=== PATIENT | female | born 1970 | race Caucasian/White ===

== ENCOUNTER 2024-11-16 09:21 | Observation (INO) ==
[2024-11-16 10:26] LABS: Appearance Urine Turbid (Clear); Bacteria Urine Automated 4+ (None Seen); Glucose Urine UA Negative (Negative); WBC Urine Automated >50 /hpf (0-5)
[2024-11-16 10:27] LABS: Hematocrit (blood only) 42.1 % (37.0-47.0); Hemoglobin 14.3 g/dl (12.0-16.0); Immature Granulocytes # (auto) 0.04 K/uL (0.01-0.20); Immature Granulocytes % (auto) 0.3 %; Mean Corpuscular Hemoglobin 31.4 pg (25.0-34.0); Mean Corpuscular Volume 92.3 fL (80.0-100.0); Platelet Count 320 K/uL (130-400); RDW Standard Deviation 43.6 fL (36.4-46.3); Red Blood Count 4.56 M/uL (4.20-5.40); White Blood Count 11.99 K/ul (4.8-10.8)
[2024-11-16 10:46] LABS: Alanine Aminotransferase 27.0 U/L (7-52); Albumin Globulin Ratio 1.5 (0.9-2); Alkaline Phosphatase 86.0 U/L (34-104); Anion Gap 6.0 (3-11); Bilirubin,Total 0.7 mg/dl (0.2-1.0); Blood Urea Nitrogen 18.0 mg/dl (6-23); Calcium 9.5 mg/dl (8.6-10.3); Carbon Dioxide 30.0 mmol/L (21-32); Chloride 102.0 mmol/L (98-107); Creatinine Clr Calc Pharmacy 85.7 ml/min; Globulin 2.9 gm/dl (2.5-4.0); Glucose 99.0 mg/dl (70-99(Fasting)); Potassium 3.6 mmol/L (3.5-5.1); Sodium 138.0 mmol/L (136-145); Total Protein 7.2 gm/dl (6.0-8.3)
--- NOTE | 2024-11-16 10:59 | Emergency Department Note ---
ED Provider Note History of Present Illness Chief Complaint: Urinary Symptoms Stated Complaint: URINARY Time Seen by Provider: 11/16/24 09:31 Source: patient Mode of arrival: ambulatory Limitations: no limitations Patient is a 54-year-old female who presents to the emergency department with complaints of lower abdominal discomfort, urinary retention, and feelings of bloating. Patient states that she has a significant urological history and has had cystoscopies and recently Botox injected into her bladder. Patient was seen by urology several days ago and was complaining of urinary retention at that point but believes it is got worse since then. Patient has been self catheterizing at home, typically at night but does not believe that she is emptying her bladder completely. Patient also notes general body aches and unwell feeling. Home Medications Medication Instructions Recorded Confirmed Type Medical Marijuana 1 dose PO DAILY 09/10/24 11/16/24 History Super Beets 1 dose PO QAM 09/10/24 11/16/24 History cholecalciferol (vitamin D3) 25 25 mcg PO DAILY 09/10/24 11/16/24 History mcg (1,000 unit) chewable tablet (Vitamin D3) coenzyme Q10 100 mg capsule (Co 100 mg PO QA 09/10/24 11/16/24 History Q-10) duloxetine 60 mg capsule,delayed 60 mg PO QA 09/10/24 11/16/24 History release ezetimibe 10 mg tablet 10 mg PO QAM 09/10/24 11/16/24 History guaifenesin 600 mg tablet, 600 mg PO QA 09/10/24 11/16/24 History extended release 12 hr hydrochlorothiazide 25 mg tablet 25 mg PO QAM 09/10/24 11/16/24 History magnesium glycinate 100 mg (as 100 mg PO 09/10/24 11/16/24 History glycinate) tablet potassium chloride 10 mEq 10 meq PO QAM 09/10/24 11/16/24 History tablet,extended release red yeast rice 600 mg tablet 600 mg PO HS 09/10/24 11/16/24 History trazodone 100 mg tablet 100 mg PO HS 09/10/24 11/16/24 History tamsulosin 0.4 mg capsule 0.4 mg PO HS #90 caps 11/11/24 11/16/24 Rx losartan 100 mg tablet 100 mg PO QAM 11/16/24 11/16/24 History propranolol 80 mg tablet 40 mg PO QAM 11/16/24 11/16/24 History semaglutide (weight loss) 2.4 2.4 mg subcut WK 11/16/24 11/16/24 History mg/0.75 mL subcutaneous pen injector (Wegovy) zinc gluconate 50 mg tablet 50 mg PO QAM 11/16/24 11/16/24 History Allergies Allergy/AdvReac Type Severity Reaction Status Date / Time kiwi Allergy Severe Anaphylaxis Unverified 11/16/24 12:01 morphine Allergy Intermediate felt like Verified 11/16/24 12:01 bugs crawling on skin, severe Sulfa (Sulfonamide AdvReac Intermediate Headache Verified 11/16/24 12:01 Antibiotics) Past Med/Surg History Problem List (Updated 11/16/24 @ 14:34 by Akash Kwok) Urinary tract infection (Acute) Acute urinary retention (Acute) Hernia Pelvic floor dysfunction (Chronic) Incontinence (Chronic) Medical History Chronic sinusitis History of anesthesia reaction BP went really high, needed a nitro patch at one point for it HLD (hyperlipidemia) HTN (hypertension) BP 118/78 at 01/2024 cardio appt History of kidney stones GERD (gastroesophageal reflux disease) Fibromyalgia History of anesthesia reaction did not move bowels for 10 days after last bladder sx, was hospitalized at [facility] for 4 days due to this, July 2020 Surgical History History of esophagogastroduodenoscopy (EGD) History of colonoscopy History of cholecystectomy "might" have had removed History of appendectomy Hx of vascular surgery to legs vein stripping [place] teeth extracted Hx of lithotripsy History of partial hysterectomy Hx of section x2 Hx of hernia repair Hx of sinus surgery History of bladder surgery x2, first one was done through abdomen Family History Brother Heart problem Social History Smoking Status: Never smoker Second Hand Exposure: No; Do You Dip or Chew Tobacco: No; Hx Alcohol Use: Yes Alcohol type: wine Hx Substance Use: Yes Substance Use Type Other:: med card. Preferred Language: [place] Communication Ability: Effective Visual Impairment: No Limitations Buffet Waiter/Waitress Required: No Beliefs That Will Affect Care: None Current Living Situation: Spouse Feels Safe at Home: Yes Assistive Devices: Glasses Physical Exam Vital Signs Vital Signs - 24 hr 11/16/24 09:22 11/16/24 09:27 11/16/24 11:13 Temperature 36.5 C Temperature Source Temporal Artery Scan Pulse Rate 90 84 Pulse Rate [Right Finger] 77 Respiratory Rate 16 18 Respiratory Effort / Characteristics Non-Labored Respiratory Depth Normal Respiratory Pattern Regular Blood Pressure 134/88 Blood Pressure [Right Arm] 130/90 Blood Pressure Mean 103 Blood Pressure Mean [Right Arm] 103 Pulse Oximetry 95 97 Oxygen Delivery Method Room Air Sepsis Recent Fever Within 48 Hours No Sepsis New/Unexplained Change in Mental Status N/A Sepsis Action Taken by Nursing No Action Required 11/16/24 11:22 Temperature Temperature Source Pulse Rate Pulse Rate [Right Finger] 76 Respiratory Rate 17 Respiratory Effort / Characteristics Respiratory Depth Respiratory Pattern Blood Pressure Blood Pressure [Right Arm] 129/79 Blood Pressure Mean Blood Pressure Mean [Right Arm] 95 Pulse Oximetry 97 Oxygen Delivery Method Sepsis Recent Fever Within 48 Hours Sepsis New/Unexplained Change in Mental Status Sepsis Action Taken by Nursing VITAL SIGNS - Vital signs and nursing notes were reviewed. GENERAL -54-year-old female appearing their stated age, who is in no acute distress. Communicates well with provider and answers questions appropriately. Patient significant other is at bedside. HEAD - Normocephalic, Atraumatic. No Robles's Sign or Raccoon's Eyes. EYES - PERRL with EOMI bilaterally. Sclera anicteric. Conjunctiva pink and moist with no injection noted. NECK - Neck with FROM. Supple to palpation. No lymphadenopathy noted. LUNGS - Chest wall symmetric without accessory muscle use, intercostals retractions, or central cyanosis. Normal vesicular breath sounds CTA B/L. No wheezes, rales, or rhonchi appreciated. CARDIAC - RRR with S1/S2. No murmur, rubs, or gallops appreciated. ABDOMEN- Soft and mildly tender in her lower abdomen with palpation. Bowel sounds present in all 4 quadrants. No palpable masses or ascites noted. EXTREMITIES - No edema present. +5/5 strength noted in UE/LE bilaterally. NEUROLOGIC -Sensory intact to light touch throughout. PSYCH - A&Ox3 and cooperates fully with examiner. Pt is very pleasant and interacts well with examiner Course Administered Medications Discontinued Medications Cefazolin Sodium (Ancef 2000mg) 2,000 mg in 15 mls @ 3.75 mls/min IV NOW STA Stop: 11/16/24 12:19 Last Admin: 11/16/24 12:22 Dose: 3.75 mls/min Documented By: florencio Ioversol (Optiray 320 100ml) 94 ml IV ONCE ONE Stop: 11/16/24 11:13 Last Admin: 11/16/24 11:14 Dose: 94 ml Documented By: RADHA Medical Decision Making Differential Diagnosis UTI, cystitis, pyelonephritis, hydronephrosis, small bowel obstruction, among others Medical Records Attestation: I reviewed the patient's medical records. Home Medications was personally reviewed by me Laboratory Data Attestation: I reviewed the patient's lab results. 11/16/24 10:01 11/16/24 10:01 Lab Results 11/16/24 11/16/24 Range/Units 09:48 10:01 WBC 11.99 H (4.8-10.8) K/ul RBC 4.56 (4.20-5.40) M/uL Hgb 14.3 (12.0-16.0) g/dl Hct 42.1 (37.0-47.0) % MCV 92.3 (80.0-100.0) fL MCH 31.4 (25.0-34.0) pg MCHC 34.0 (32.0-36.0) g/dL RDW Std Deviation 43.6 (36.4-46.3) fL RDW Coeff of Nancy 12.8 (11.5-14.5) % Plt Count 320 (130-400) K/uL MPV 8.6 L (9.4-12.4) fL Immature Gran % (Auto) 0.3 % Neut % (Auto) 81.5 % Lymph % (Auto) 11.0 % [place] % (Auto) 6.1 % Eos % (Auto) 0.8 % Baso % (Auto) 0.3 % Neut # (Auto) 9.78 H (1.40-6.50) K/uL Lymph # (Auto) 1.32 (1.20-3.40) K/uL [place] # (Auto) 0.73 H (0.11-0.59) K/uL Eos # (Auto) 0.09 (0.00-0.50) K/uL Baso # (Auto) 0.03 (0.00-0.20) K/uL Immature Gran # (Auto) 0.04 (0.01-0.20) K/uL Sodium 138 (136-145) mmol/L Potassium 3.6 (3.5-5.1) mmol/L Chloride 102 (98-107) mmol/L Carbon Dioxide 30 (21-32) mmol/L Anion Gap 6 (3-11) BUN 18 (6-23) mg/dl Creatinine 0.80 (0.6-1.2) mg/dl Est Cr Clr Drug Dosing 85.7 ml/min eGFR 87.50 BUN/Creatinine Ratio 22.5 H (10-20) Glucose 99 (70-99(Fasting)) mg/dl Calcium 9.5 (8.6-10.3) mg/dl Total Bilirubin 0.7 (0.2-1.0) mg/dl AST 17 (13-39) U/L ALT 27 (7-52) U/L Alkaline Phosphatase 86 (34-104) U/L Total Protein 7.2 (6.0-8.3) gm/dl Albumin 4.3 (3.4-5.0) gm/dl Globulin 2.9 (2.5-4.0) gm/dl Albumin/Globulin Ratio 1.5 (0.9-2) Urine Color [place] Urine Appearance Turbid A (Clear) Urine pH 5.5 (4.5-7.5) Ur Specific [place] 1.020 (1.000-1.030) Urine Protein 2+ H (Negative) Urine Glucose (UA) Negative (Negative) Urine Ketones Trace H (Negative) Urine Blood 3+ H (Negative) Urine Nitrite Positive A (Negative) Urine Bilirubin Negative (Negative) Urine Urobilinogen Negative (Negative) Ur Leukocyte Esterase 3+ H (Negative) Urine WBC (Auto) >50 H (0-5) /hpf Urine RBC (Auto) 11-20 H (0-2) /hpf U Hyaline Cast (Auto) 3-5 H (0-2) /lpf U Epithel Cells (Auto) 6-10 H (0-2) /hpf Urine Bacteria (Auto) 4+ H (None Seen) Urine Comment Imaging Data Radiologist's Impression: Abdomen/Pelvis CT 11/16/24 09:46 CT SCAN OF THE ABDOMEN AND PELVIS WITH IV CONTRAST CLINICAL HISTORY: Urinary retention. Back pain. COMPARISON STUDY: CT of the abdomen and pelvis September 01, 2024. TECHNIQUE: Following the IV administration of 94 cc of Optiray 320, CT scan of the abdomen and pelvis is performed from the lung bases to the proximal femora. Images are reviewed in the axial, sagittal, and coronal planes. IV contrast was administered without complication. A dose lowering technique was utilized adhering to the principles of ALARA. CT DOSE: 1394.17 mGy.cm FINDINGS: Visualized lung bases are unremarkable. No pneumatosis, free air or portal venous gas is present. The liver, spleen, right adrenal gland, kidneys and pancreas are unremarkable. There is no biliary or pancreatic ductal dilatation. A 3 cm left adrenal lesion measured near water attenuation prior unenhanced CT of September 01, 2024. This favors an adenoma. There is no hydronephrosis. A Cage balloon within the bladder is noted. The bladder is collapsed. There is moderate bladder wall thickening mild adjacent inflammation. There is no evidence for a bowel obstruction. The caliber and wall thickness of small and large bowel are normal. Major vasculature is patent. IMPRESSION: 1. Collapsed bladder containing a Cage balloon. Bladder wall thickening, mucosal hyperemia and moderate adjacent inflammation. The findings favor cystitis and could be correlated with urinalysis. 2. No bowel obstruction. No bowel wall thickening. 3. No hydronephrosis. No CT evidence for acute pyelonephritis. ACT 112: Negative or not required by law. Electronically signed by: Alessandro Yee M.D. 11/16/2024 11:41 AM MDM Narrative Patient is a 54-year-old female who presents to the emergency department with complaints of lower abdominal discomfort, urinary retention, and feelings of bloating. Patient states that she has a significant urological history and has had cystoscopies and recently Botox injected into her bladder. Patient was seen by urology several days ago and was complaining of urinary retention at that point but believes it is got worse since then. Patient has been self catheterizing at home, typically at night but does not believe that she is emptying her bladder completely. Patient also notes general body aches and unwell feeling. Patient was evaluated by myself and findings were noted in the physical exam above. Patient was ordered IV placement, lab work, urinalysis, bladder scan, Cage insertion and a CT of the abdomen pelvis. Cage was successfully placed at bedside by nursing staff patient tolerated the procedure well. Patient drained approximately 300 cc of urine with insertion. Patient's lab work resulted with a mildly elevated white blood cell count of 11.99. Patient had no significant electrolyte imbalance noted. Patient did have a urinalysis that resulted strongly indicative of infection. Patient's urine had 2+ protein, 3+ blood, positive nitrites and 4+ bacteria. Patient was seen by urology just 5 days ago and had a urinalysis completed at that time that was negative for any indication of infection. Patient also had a CT of the abdomen pelvis that noted a collapsed bladder containing a Cage balloon. Patient had bladder wall thickening mucosal hyperemia and moderate adjacent inflammation these findings would favor cystitis. Correlating those CT findings with the patient is elevated white blood cell count and significant indication of infection on the urinalysis it is likely that the patient symptoms are related to cystitis. I discussed all these findings with the patient and the patient verbalized understanding. I discussed with the patient that because of her elevated white blood cell count and how quickly it her urine became indicative of infection that i would advise admission to the hospital for IV antibiotics and close monitoring with consult from urology. Patient verbalized understanding and was agreeable to that plan. Patient was ordered a dose of Ancef at this time. I reached out to [facility] to admit the patient. They were given a full report of the patient's chief complaint, current status and the results of her imaging and lab work. Patient was accepted for admission under the [facility]. Please refer to their documentation for further evaluation and management of this patient. Impression Urinary tract infection Discharge Plan Visit Data Chief Complaint: Urinary Symptoms Stated Complaint: URINARY ED Provider: Haylie Mcfarlane ED Midlevel Provider: Felicia Sam Discharge Problem: Urinary tract infection Patient Disposition: Admitted As Inpatient Condition: Fair ED DC CONDITION Conditon at Discharge Condition at Discharge: Fair Discharge Problem: Urinary tract infection Qualifiers: Urinary tract infection type: acute cystitis Hematuria presence: with hematuria Qualified Code(s): N30.01 - Acute cystitis with hematuria
[2024-11-16] MEDS: OPTIRAY 320 100ml IV ONE (11:14)
--- NOTE | 2024-11-16 11:43 | CT Scan Report ---
CT SCAN OF THE ABDOMEN AND PELVIS WITH IV CONTRAST CLINICAL HISTORY: Urinary retention. Back pain. COMPARISON STUDY: CT of the abdomen and pelvis September 01, 2024. TECHNIQUE: Following the IV administration of 94 cc of Optiray 320, CT scan of the abdomen and pelvi s is performed from the lung bases to the proximal femora. Images are reviewed in the axial, sagittal , and coronal planes. IV contrast was administered without complication. A dose lowering technique wa s utilized adhering to the principles of ALARA. CT DOSE: 1394.17 mGy.cm FINDINGS: Visualized lung bases are unremarkable. No pneumatosis, free air or portal venous gas is pr esent. The liver, spleen, right adrenal gland, kidneys and pancreas are unremarkable. There is no kane iary or pancreatic ductal dilatation. A 3 cm left adrenal lesion measured near water attenuation prio r unenhanced CT of September 01, 2024. This favors an adenoma. There is no hydronephrosis. A Cage balloon within the bladder is noted. The bladder is collapsed. There is moderate bladder wall thickening mil d adjacent inflammation. There is no evidence for a bowel obstruction. The caliber and wall thickness of small and large bowel are normal. Major vasculature is patent. IMPRESSION: 1. Collapsed bladder containing a Cage balloon. Bladder wall thickening, mucosal hyperemia and moder ate adjacent inflammation. The findings favor cystitis and could be correlated with urinalysis. 2. No bowel obstruction. No bowel wall thickening. 3. No hydronephrosis. No CT evidence for acute pyelonephritis. ACT 112: Negative or not required by law. Electronically signed by: Alessandro Yee M.D. 11/16/2024 11:41 AM
--- NOTE | 2024-11-16 13:02 | History & Physical Report ---
Date of Service November 16, 2024 Assessment & Plan (1) Urinary tract infection: (2) Acute urinary retention: (3) Pelvic floor dysfunction: (4) HTN (hypertension): (5) HLD (hyperlipidemia): Plan Leilani is a pleasant 54-year-old woman with past medical history of pelvic floor dysfunction, urge/stress incontinence, urinary retention, history of kidney stones, hypertension, hyperlipidemia, chronic sinusitis, GERD. She presented with urinary retention, lower abdominal pain, and bloating. She had bladder Botox injection on 11/[address] Doherty due to persistent issues with severe mixed incontinence with failure of multiple medications. 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 She was having some issues with urinary retention and had a negative UA at that time. Her urinary retention worsened at home and she began feeling generally unwell. She was admitted for IV antibiotics for UTI. #UTI | urinary retention | pelvic floor dysfunction - history of severe mixed incontinence following abdominal bladder lift after hysterectomy and vaginal cystocele repair. Prior cystoscopy revealed severe urethral hypermobility. She underwent Bulkamid injections in August 2024 with minor improvement and subsequently underwent Botox bladder injections. Now with subsequent urinary retention. - UA grossly infected on admission with 4+ bacteria, 3+ leukocyte Estrace, positive nitrites, 3+ blood, > 50 WBC. Urine culture pending. No prior urine culture sensitivities to review - Mild leukocytosis of 11.99 - trend CBC - CT A/P suggestive of cystitis, no hydronephrosis, no acute pyelonephritis. Renal function at baseline - Start ceftriaxone 2 g IV daily while urine culture is pending. S/p cefazolin x 1 in the ED - Cage catheter placed in ED - continue Cage catheter management daily - Continue tamsulosin - Urology consulted, appreciate recommendations and assistance #Hypertension | Hyperlipidemia continue losartan 100 mg daily, HCTZ 25 mg daily, propranolol 40 mg daily, ezetimibe 10 mg daily, KCl 10 mEq daily #Anxiety | Insomnia - continue duloxetine 60 mg daily, trazodone 100 mg HS #Chronic sinusitis continue guaifenesin 600 mg daily #Vitamin D deficiency continue vitamin D3 25 mcg daily #Weight loss on Wegovy weekly outpatient Dispo: Med/surg observation VTE PPx: Low risk, anticipate short LOS, encourage ambulation Reviewed outpatient records Updated at bedside History of Present Illness Chief Complaint: Leilani is a pleasant 54-year-old woman with past medical history of pelvic floor dysfunction, urge/stress incontinence, urinary retention, history of kidney stones, hypertension, hyperlipidemia, chronic sinusitis, GERD. She presented from home with urinary retention, lower abdominal pain, and bloating. At the time of my exam, the patient was lying in bed in no acute distress with her hus band at bedside. She states she has a significant urological history and recently had Botox injected into her bladder on 11/01 due to urinary incontinence. Unfortunately this seems to have caused urinary retention. Leilani was recently seen by urology outpatient for urinary retention and believes it has gotten worse since her visit with them 5 days ago. She had a UA checked 5 days ago at her urology appointment which was negative for infection. Her UA in the ED on presentation was significantly infected. She has been self catheterizing at home but does not believe she is completely emptying her bladder. She also reports dysuria, generalized body aches, malaise, and chills x couple days. Hematuria started yesterday evening. Mild nausea began this morning. Patient reports that she took all of her regular morning medications today; only recent medication change was starting Flomax. She does not use supplemental oxygen at baseline. No CPAP at night. Vitals on admission are stable. Labs on admission are significant for leukocytosis with WBC 11.99 with neutrophil predominance, significantly infected UA. Renal function is normal. Electrolytes are normal. CT A/P on admission reveals findings suggestive of cystitis, no hydronephrosis no acute pyelonephritis, no bowel obstruction. We discussed code status, patient wishes to be a full code. Primary Care Provider: Deion Rivear Allergies Allergy/AdvReac Type Severity Reaction Status Date / Time kiwi Allergy Severe Anaphylaxis Unverified 11/16/24 12:01 morphine Allergy Intermediate felt like Verified 11/16/24 12:01 bugs crawling on skin, severe Sulfa (Sulfonamide AdvReac Intermediate Headache Verified 11/16/24 12:01 Antibiotics) Home Medications Medication Instructions Recorded Confirmed Type Medical Marijuana 1 dose PO DAILY 09/10/24 11/16/24 History Super Beets 1 dose PO QAM 09/10/24 11/16/24 History cholecalciferol (vitamin D3) 25 25 mcg PO DAILY 09/10/24 11/16/24 History mcg (1,000 unit) chewable tablet (Vitamin D3) coenzyme Q10 100 mg capsule (Co 100 mg PO QAM 09/10/24 11/16/24 History Q-10) duloxetine 60 mg capsule,delayed 60 mg PO QAM 09/10/24 11/16/24 History release ezetimibe 10 mg tablet 10 mg PO QAM 09/10/24 11/16/24 History guaifenesin 600 mg tablet, 600 mg PO QAM 09/10/24 11/16/24 History extended release 12 hr hydrochlorothiazide 25 mg tablet 25 mg PO QAM 09/10/24 11/16/24 History magnesium glycinate 100 mg (as 100 mg PO 09/10/24 11/16/24 History glycinate) tablet potassium chloride 10 mEq 10 meq PO QAM 09/10/24 11/16/24 History tablet,extended release red yeast rice 600 mg tablet 600 mg PO 09/10/24 11/16/24 History trazodone 100 mg tablet 100 mg PO 09/10/24 11/16/24 History tamsulosin 0.4 mg capsule 0.4 mg PO HS #90 caps 11/11/24 11/16/24 Rx losartan 100 mg tablet 100 mg PO QAM 11/16/24 11/16/24 History propranolol 80 mg tablet 40 mg PO QAM 11/16/24 11/16/24 History semaglutide (weight loss) 2.4 2.4 mg subcut WK 11/16/24 11/16/24 History mg/0.75 mL subcutaneous pen injector (Wegovy) zinc gluconate 50 mg tablet 50 mg PO QAM 11/16/24 11/16/24 History Past Med/Surg History Problem List Urinary tract infection (Acute) Acute urinary retention (Acute) Hernia Pelvic floor dysfunction (Chronic) Incontinence (Chronic) Medical History Chronic sinusitis History of anesthesia reaction BP went really high, needed a nitro patch at one point for it HLD (hyperlipidemia) HTN (hypertension) BP 118/78 at 01/2024 cardio appt History of kidney stones GERD (gastroesophageal reflux disease) Fibromyalgia History of anesthesia reaction did not move bowels for 10 days after last bladder sx, was hospitalized at [facility] for 4 days due to this, July 2020 Surgical History History of esophagogastroduodenoscopy (EGD) History of colonoscopy History of cholecystectomy "might" have had removed History of appendectomy Hx of vascular surgery to legs vein stripping [place] teeth extracted Hx of lithotripsy History of partial hysterectomy Hx of section x2 Hx of hernia repair Hx of sinus surgery History of bladder surgery x2, first one was done through abdomen Family History Brother Heart problem Social History Smoking Status: Never smoker Second Hand Exposure: No; Do You Dip or Chew Tobacco: No; Hx Alcohol Use: Yes Alcohol type: wine Hx Substance Use: No Preferred Language: Irish Communication Ability: Effective Visual Impairment: No Limitations Software Quality Assurance Specialist Required: No Beliefs That Will Affect Care: None Current Living Situation: Spouse Feels Safe at Home: Yes Assistive Devices: Glasses Review of Systems Review of Systems: All systems reviewed & are unremarkable except as noted in HPI & below Constitutional: + malaise Gastrointestinal: + abdominal pain (Suprapubic), + bloatin g and + nausea Genitourinary: + dysuria, + difficulty urinating and + hematuria Physical Exam Physical Exam: General: No acute distress, nondiaphoretic, well-developed, well-nourished. Skin: Warm, dry. No rashes or peripheral edema noted. Cardiac: Regular rate and rhythm without murmurs gallops or rubs. Pulm: Clear to auscultation bilaterally without wheezes, rales or rhonchi. Normal respiratory effort. 98% on room air. Abdominal: Soft, nondistended. Tender throughout abdomen but most prominent in lower abdomen/suprapubic region. Bowel sounds present. : Cage catheter with dark cloudy urine. No CVA tenderness. Neuro: A&O x3. No focal neurological deficits. Results & Data Results & Data Vital Signs (Past 12 Hours) Vital Signs Temp Pulse Pulse Resp BP BP Pulse Ox 11/16/24 11:22 76 17 129/79 97 11/16/24 11:13 84 11/16/24 09:27 97.7 F 90 18 134/88 97 11/16/24 09:22 77 16 130/90 95 O2 Del Method 11/16/24 11:22 11/16/24 11:13 11/16/24 09:27 Room Air 11/16/24 09:22 Laboratory Results Reviewed CBC with differential Reviewed CMP, chemistries Reviewed UA Diagnostic Findings Reviewed CT A/P Supervising Physician Co-Signing Physician Notes Patient was seen and examined independently I discussed the case with Sherri Phan PA-C I reviewed pertinent past medical social family history and also the plan of ca re and agree with the plan of care. Patient with recent treatment by urology for pelvic floor distal function and urge stress incontinence urinary retention and kidney stones who presents with concern for urinary treat infection present on admission that was with significant symptomatic complaints. Patient will be on ceftriaxone after cefazolin emergency department with cultures obtained. She is in significant discomfort and will be offered parenteral pain medications. Physical exam finds the patient having a flat affect she has significant tenderness to her left lower quadrant Any exceptions will be noted below PG Care Time/CCT Total # of Minutes Spent Total Time Spent with Patient: Total time spent is greater than 50% in coordination of care (as documented) at patient's floor/unit and/or counseling patient: Coding Level of Care Code 54851 INT INP/OBS CARE 375MIN Diagnoses Urinary tract infection N30.01 Hematuria presence: with hematuria Urinary tract infection type: acute cystitis Acute urinary retention R33.8 Pelvic floor dysfunction M62.89 HTN (hypertension) I10 HLD (hyperlipidemia) E78.5 (1) Urinary tract infection Hematuria presence: with hematuria Urinary tract infection type: acute cystitis Qualified Code(s): N30.01 - Acute cystitis with hematuria
[2024-11-16] MEDS ORDERED: POLYETHYLENE (MIRALAX) 17 GM PACK PO PRN (15:36)
[2024-11-16] MEDS ORDERED: ONDANSETRON INJ 2 MG/ML 2 ML VIAL IV PRN (15:36)
--- NOTE | 2024-11-16 19:23 | Urology Consultation ---
Date of Consultation November 16, 2024 Assessment & Plan (1) Acute urinary retention: Patient has been admitted on the hospitalist service. From a urologic perspective we recommend the following: Patient's urinary retention is likely due to her ongoing urologic issues that are listed in the history of present illness in this document In addition, it appears that the patient has a urinary tract infection She has been started on antibiotics in the form of Rocephin which should continue and can be tailored based on pending urine culture results as they become available Cage catheter has been placed and would recommend continuing this modality for maximal urinary drainage in the setting of a urinary tract infection with urinary retention The patient did report some intermittent hematuria, and I do suspect that this may be due to overdistention of her bladder resulting in blood vessel/capillary rupture and should be self-limited with as her bladder becomes decompressed Additional recommendations will be forthcoming based on her clinical course as unfolds History of Present Illness Reason for Consultation: Urinary retention Attending Physician: Jagdeep Laws MD History of Present Illness This is a 54-year-old female who typically follows with [facility] physician group urology, Dr. Doherty. The patient does have a history of pelvic floor dysfunction, urge and stress incontinence as well as urinary retention. Her most recent procedure with Dr. Doherty was on 11/01/2024 at which time she had Botox injections and since that time the patient has had difficulty with urinary retention. The patient notes that she has been in contact with the urology office and was recommended the patient perform intermittent self catheterizations which she has been doing, but she does note that she has been having difficulty consistently performing this procedure. She presented to the emergency department with symptomatology that is delineated below. The patient adds that due to the urologic issues she is facing she has not had any additional procedures with Dr. Doherty scheduled. The patient notes for approximate the past 5 days she has had difficulty urinating noted that she has had decreased urine flow and incomplete bladder emptying. She also notes that she has had intermittent dysuria and intermittent hematuria as well as back/flank pain. She has not had any fevers but did note occasional shakes and chills. She notes that her urine has become malodorous and over the past 24 to 48 hours she notes that she generally feels tired, fatigued, and generally unwell. In addition she notes that she has had decreased appetite and decreased oral intake. Since arrival to hospital she has had labs and imaging which I independently reviewed. CT scan of the abdomen pelvis showed no evidence of hydronephrosis or CT evidence of acute pyelonephritis. She was noted to have bladder wall thickening with some adjacent inflammation concerning for cystitis. Labs included CBC white blood cell count was elevated 11.9. Hemoglobin and hematocrit and the platelet count were normal. Chemistry profile showed sodium, potassium, BUN, and creatinine were normal. She did not have any elevation of her LFTs. The urinalysis showed turbid urine which was positive for nitrites. She was noted to have 3+ leukocyte Estrace and pyuria with greater than 50 white blood cells per high-power field and 4+ bacteria. Upon arrival to the emergency department the patient has had a Cage catheter placed and she does note some improvement of her clinical symptoms with this modality. At the time of my interview she was resting comfortably in bed and she was in no distress Allergies Allergy/AdvReac Type Severity Reaction Status Date / Time kiwi Allergy Severe Anaphylaxis Unverified 11/16/24 12:01 morphine Allergy Intermediate felt like Verified 11/16/24 12:01 bugs crawling on skin, severe Sulfa (Sulfonamide AdvReac Intermediate Headache Verified 11/16/24 12:01 Antibiotics) Home Medications Medication Instructions Recorded Confirmed Type Medical Marijuana 1 dose PO DAILY 09/10/24 11/16/24 History Super Beets 1 dose PO QAM 09/10/24 11/16/24 History cholecalciferol (vitamin D3) 25 25 mcg PO DAILY 09/10/24 11/16/24 History mcg (1,000 unit) chewable tablet (Vitamin D3) coenzyme Q10 100 mg capsule (Co 100 mg PO QAM 09/10/24 11/16/24 History Q-10) duloxetine 60 mg capsule,delayed 60 mg PO QAM 09/10/24 11/16/24 History release ezetimibe 10 mg tablet 10 mg PO QAM 09/10/24 11/16/24 History guaifenesin 600 mg tablet, 600 mg PO QAM 09/10/24 11/16/24 History extended release 12 hr hydrochlorothiazide 25 mg tablet 25 mg PO QAM 09/10/24 11/16/24 History magnesium glycinate 100 mg (as 100 mg PO HS 09/10/24 11/16/24 History glycinate) tablet potassium chloride 10 mEq 10 meq PO QAM 09/10/24 11/16/24 History tablet,extended release red yeast rice 600 mg tablet 600 mg PO HS 09/10/24 11/16/24 History trazodone 100 mg tablet 100 mg PO HS 09/10/24 11/16/24 History tamsulosin 0.4 mg capsule 0.4 mg PO HS #90 caps 11/11/24 11/16/24 Rx losartan 100 mg tablet 100 mg PO QAM 11/16/24 11/16/24 History propranolol 80 mg tablet 40 mg PO QAM 11/16/24 11/16/24 History semaglutide (weight loss) 2.4 2.4 mg subcut WK 11/16/24 11/16/24 History mg/0.75 mL subcutaneous pen injector (Wegovy) zinc gluconate 50 mg tablet 50 mg PO QAM 11/16/24 11/16/24 History Patient History Medical History Chronic sinusitis History of anesthesia reaction BP went really high, needed a nitro patch at one point for it HLD (hyperlipidemia) HTN (hypertension) BP 118/78 at 01/2024 cardio appt History of kidney stones GERD (gastroesophageal reflux disease) Fibromyalgia History of anesthesia reaction did not move bowels for 10 days after last bladder sx, was hospitalized at [facility] for 4 days due to this, July 2020 Surgical History History of esophagogastroduodenoscopy (EGD) History of colonoscopy History of cholecystectomy "might" have had removed History of appendectomy Hx of vascular surgery to legs vein stripping [place] teeth extracted Hx of lithotripsy History of partial hysterectomy Hx of section x2 Hx of hernia repair Hx of sinus surgery History of bladder surgery x2, first one was done through abdomen Family History Brother Heart problem Social History Smoking Status: Never smoker Second Hand Exposure: No; Do You Dip or Chew Tobacco: No; Hx Alcohol Use: Yes Alcohol type: wine Hx Substance Use: Yes Substance Use Type Other:: med card. Preferred Language: Estonian Communication Ability: Effective Visual Impairment: No Limitations Police Officer Required: No Beliefs That Will Affect Care: None Current Living Situation: Spouse Feels Safe at Home: Yes Assistive Devices: Glasses Review of Systems Review of Systems: All systems reviewed & are unremarkable except as noted in HPI & below Physical Exam Constitutional: WD/WN, vitals as above Eyes: no conjunctival abnormality ENMT: Ears: no hearing impairment and no external ear abnormality Mouth: no oropharynx abnormality Neck: trachea midline Respiratory: normal respiratory effort; no respiratory distress and no labored breathing Cardiovascular: Rate/Rhythm: regular rate and regular rhythm Vessels: posterior tibial pulses present Gastrointestinal (Abdomen): Abdomen is soft and nondistended. There is no rebound tenderness or guarding. The patient did exhibit some tenderness on the left side of her abdomen. Musculoskeletal: No calf tenderness. Skin: no rashes Neurologic: moves all extremities Psychiatric: Orientation: alert and oriented x 3 Affect: + flat affect Genitourinary: No CVA tenderness with percussion on the right. Patient with slight CVA tenderness with percussion on the left. Results & Data Vital Signs (Past 12 Hours) Vital Signs Temp Pulse Pulse Resp BP BP Pulse Ox 11/16/24 18:48 83 16 95 11/16/24 17:30 84 13 106/75 97 11/16/24 17:00 72 14 105/68 96 11/16/24 16:30 80 14 105/70 95 11/16/24 16:00 68 14 104/67 94 11/16/24 15:30 73 15 95/60 L 93 11/16/24 15:06 76 11/16/24 15:00 69 14 99/69 L 97 11/16/24 14:00 69 17 130/71 97 11/16/24 14:00 69 18 130/71 97 11/16/24 13:30 65 14 106/69 98 11/16/24 13:00 64 15 109/71 97 11/16/24 13:00 68 14 109/71 98 11/16/24 12:51 70 13 114/73 99 11/16/24 11:22 76 17 129/79 97 11/16/24 11:13 84 11/16/24 09:27 36.5 C 90 18 134/88 97 11/16/24 09:22 77 16 130/90 95 O2 Del Method 11/16/24 18:48 Room Air 11/16/24 17:30 11/16/24 17:00 11/16/24 16:30 11/16/24 16:00 11/16/24 15:30 11/16/24 15:06 11/16/24 15:00 11/16/24 14:00 11/16/24 14:00 Room Air 11/16/24 13:30 11/16/24 13:00 11/16/24 13:00 Room Air 11/16/24 12:51 11/16/24 11:22 11/16/24 11:13 11/16/24 09:27 Room Air 11/16/24 09:22 PG Care Time/CCT Total # of Minutes Spent Total Time Spent with Patient: Total time spent is greater than 50% in coordination of care (as documented) at patient's floor/unit and/or counseling patient: Coding Level of Care Code 75495 OFFICE CONSULT LVL 5/55M Diagnoses Acute urinary retention R33.8
[2024-11-16] MEDS: MAGNESIUM OXIDE 400 MG TAB PO SCH (19:39)
[2024-11-16] MEDS: cefTRIAXone SODIUM 2,000 MG/50 ML BAG IV SCH (19:39)
[2024-11-16] MEDS: TAMSULOSIN HCL 0.4 MG CAP PO SCH (19:39)
[2024-11-16] MEDS: ACETAMINOPHEN 325 MG TAB PO PRN (19:47)
[2024-11-17 08:04] LABS: Hematocrit (blood only) 39.1 % (37.0-47.0); Hemoglobin 13.5 g/dl (12.0-16.0); Mean Corpuscular Hemoglobin 31.8 pg (25.0-34.0); Mean Corpuscular Volume 92.2 fL (80.0-100.0); Platelet Count 288 K/uL (130-400); RDW Standard Deviation 42.8 fL (36.4-46.3); Red Blood Count 4.24 M/uL (4.20-5.40); White Blood Count 6.40 K/ul (4.8-10.8)
[2024-11-17 08:18] LABS: Anion Gap 7.0 (3-11); Blood Urea Nitrogen 14.0 mg/dl (6-23); Calcium 9.1 mg/dl (8.6-10.3); Carbon Dioxide 31.0 mmol/L (21-32); Chloride 102.0 mmol/L (98-107); Creatinine Clr Calc Pharmacy 97.9 ml/min; Glucose 93.0 mg/dl (70-99(Fasting)); Potassium 3.8 mmol/L (3.5-5.1); Sodium 140.0 mmol/L (136-145)
[2024-11-17] MEDS: CHOLECALCIFEROL 25 MCG (1000 UNITS) TAB PO SCH (09:03)
[2024-11-17] MEDS: POTASSIUM CHLORIDE 10 MEQ TABCR PO SCH (09:03)
[2024-11-17] MEDS: PROPRANOLOL HCL 20 MG TAB PO SCH (09:03)
[2024-11-17] MEDS: EZETIMIBE 10 MG TAB PO SCH (09:03)
[2024-11-17] MEDS: LOSARTAN POTASSIUM 50 MG TAB PO SCH (09:03)
[2024-11-17] MEDS: guaiFENesin 600 MG TABCR PO SCH (09:03)
[2024-11-17] MEDS: hydroCHLOROthiazide 25 MG TAB PO SCH (09:03)
--- NOTE | 2024-11-17 12:11 | Hospitalist Progress Note ---
"Date of Service November 17, 2024 Assessment & Plan (1) Urinary tract infection: (2) Acute urinary retention: (3) Pelvic floor dysfunction: (4) HTN (hypertension): (5) HLD (hyperlipidemia): Plan Leilani is a pleasant 54-year-old woman with past medical history of pelvic floor dysfunction, urge/stress incontinence, urinary retention, history of kidney stones, hypertension, hyperlipidemia, chronic sinusitis, GERD. She presented with urinary retention, lower abdominal pain, and bloating. She had bladder Botox injection on 11/[address] Doherty due to persistent issues with severe mixed incontinence with failure of multiple medications. 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 She was having some issues with urinary retention and had a negative UA at that time. Her urinary retention worsened at home and she began feeling generally unwell. She was admitted for IV antibiotics for UTI. #UTI | urinary retention | pelvic floor dysfunction - history of severe mixed incontinence following abdominal bladder lift after hysterectomy and vaginal cystocele repair. Prior cystoscopy revealed severe urethral hypermobility. She underwent Bulkamid injections in August 2024 with minor improvement and subsequently underwent Botox bladder injections. Now with subsequent urinary retention. - UA grossly infected on admission. Urine culture growing E. coli, sensitivities pending. No prior urine culture sensitivities to review - Leukocytosis now resolved - Continue ceftriaxone 2 g IV daily while urine culture is pending - Cage catheter placed in ED - continue Cage catheter management daily. Maintain Cage catheter and she can follow-up with urology outpatient for a voiding trial - Continue tamsulosin - Urology consulted, appreciate recommendations and assistance #Hypertension | Hyperlipidemia continue losartan 100 mg daily, HCTZ 25 mg daily, propranolol 40 mg daily, ezetimibe 10 mg daily, KCl 10 mEq daily - Blood pressure soft 94/61 - asymptomatic - will order 1 L NSS x 1 now #Fibromyalgia - uses medical marijuana at home for this. Will use Toradol PRN for pain while hospitalized #Anxiety | Insomnia - continue duloxetine 60 mg daily, trazodone 100 mg HS #Chronic sinusitis continue guaifenesin 600 mg daily #Vitamin D deficiency continue vitamin D3 25 mcg daily #Weight loss on Wegovy weekly outpatient Dispo: Anticipate discharge home tomorrow 11/18 VTE PPx: Low risk, anticipate short LOS, encourage ambulation Ordered Toradol Ordered IVF Admission and Anticipated Discharge Date Admission Date: November 16, 2024 Subjective Patient seen and evaluated at bedside. She reports feeling much better today than yesterday. We discussed that her urine culture is still pending so we will continue with broad spectrum IV antibiotics for now. Leilani typically uses medical marijuana for her fibromyalgia pain but does not have that here. Her daughter is a pharmacist here at [facility] and recommended her to try Toradol. I told her I would order this medication for her. No additional complaints or concerns at this time. Physical Exam Physical Exam: General: No acute distress, nondiaphoretic, well-developed, well-nourished. Skin: Warm, dry. No rashes or peripheral edema noted. Cardiac: Regular rate and rhythm without murmurs gallops or rubs. Pulm: Clear to auscultation bilaterally without wheezes, rales or rhonchi. Normal respiratory effort. 95% on room air. Abdominal: Soft, nondistended. Mild tenderness in lower abdomen/suprapubic region. Bowel sounds present. : Cage catheter with cookie urine. No CVA tenderness. Neuro: A&O x3. No focal neurological deficits. Results & Data Results & Data Vital Signs (Past 12 Hours) Vital Signs Temp Pulse Resp BP Pulse Ox O2 Del Method 11/17/24 07:17 98.2 F 76 18 120/80 95 Room Air Laboratory Results Reviewed CBC Reviewed BMP Reviewed urine culture PG Care Time/CCT Total # of Minutes Spent Total Time Spent with Patient: Total time spent is greater than 50% in coordination of care (as documented) at patient's floor/unit and/or counseling patient: Coding Level of Care Code 82402 SUB INP/OBS CARE 3/50MIN Diagnoses Urinary tract infection N30.01 Hematuria presence: with hematuria Urinary tract infection type: acute cystitis Acute urinary retention R33.8 Pelvic floor dysfunction M62.89 HTN (hypertension) I10 HLD (hyperlipidemia) E78.5 (1) Urinary tract infection Hematuria presence: with hematuria Urinary tract infection type: acute cystitis Qualified Code(s): N30.01 - Acute cystitis with hematuria"
[2024-11-17] MEDS: KETOROLAC TROMETHAMINE 10 MG TABLET PO PRN (12:39)
[2024-11-17] MEDS: SODIUM CHLORIDE 0.9% 1,000 ML IV SCH (15:19)
[2024-11-17] MEDS: KETOROLAC TROMETHAMINE 15 MG/ML VIAL IV PRN (15:21)
[2024-11-18 07:47] VITALS: BP 104/72; PULSE 76; RESP 18; TEMP 98.2; O2SAT 93
--- NOTE | 2024-11-18 10:36 | Urology Progress Note ---
Date of Service November 18, 2024 Assessment & Plan (1) Acute urinary retention: (2) Urinary tract infection: Plan: 54 yo F admitted with acute UTI and urinary retention. Patient afebrile, hemodynamically stable Labs reviewed from 11/17no leukocytosis, renal function normal Final urine culture with E. coli She has been on ceftriaxone during admission Can transition to oral antibiotics upon discharge Cage catheter in place for management of urinary retention Recommend maintain catheter for approximately 1 week Nursing can provide leg bag and teach on conversion prior to discharge Continue supportive care and medical management per hospital medicine service Will arrange outpatient follow-up with urology for voiding trial and ongoing management will sign off, please contact our service with any additional questions or concerns Admission and Anticipated Discharge Date Admission Date: November 16, 2024 Subjective Patient seen and examined at bedside. She is awake and sitting up in bed. She is upset/frustrated with her current status. Denies pain at present. Reports she was feeling better most of the day yesterday, but then felt poorly in the afternoon and reports low BPs. No fever or chills. Cage intact with clear urine. Review of Systems Constitutional: as per Subjective / HPI Genitourinary: as per Subjective / HPI Physical Exam Constitutional: no acute distress Respiratory: normal respiratory effort; no respiratory distress and no labored breathing Gastrointestinal (Abdomen): Inspection/Auscultation: abdomen normal to inspection Musculoskeletal: Head/Neck/Chest: normocephalic Neurologic: moves all extremities and awake Psychiatric: Orientation: alert and oriented x 3 tearful at times during exam Genitourinary: Cage draining clear yellow Results & Data Vital Signs (Past 12 Hours) Vital Signs Temp Pulse Resp BP Pulse Ox O2 Del Method 11/18/24 07:46 36.8 C 76 18 104/72 93 Room Air 11/17/24 23:13 36.6 C 80 15 102/68 94 Room Air PG Care Time/CCT Total # of Minutes Spent Total Time Spent with Patient: Total time spent is greater than 50% in coordination of care (as documented) at patient's floor/unit and/or counseling patient: Coding Level of Care Code 62647 SUB INP/OBS CARE 04/17MIN Diagnoses Acute urinary retention R33.8 Urinary tract infection N30.01 Hematuria presence: with hematuria Urinary tract infection type: acute cystitis (2) Urinary tract infection Hematuria presence: with hematuria Urinary tract infection type: acute cystitis Qualified Code(s): N30.01 - Acute cystitis with hematuria
--- NOTE | 2024-11-18 17:34 | Discharge Summary ---
"Discharge Summary Date of Service November 18, 2024 Principal Dx & Hospital Course #1 = Principal Diagnosis (1) Urinary tract infection: (2) Acute urinary retention: (3) Pelvic floor dysfunction: (4) HTN (hypertension): (5) HLD (hyperlipidemia): Abrahan Duke is a pleasant 54-year-old woman with past medical history of pelvic floor dysfunction, urge/stress incontinence, urinary retention, history of kidney stones, hypertension, hyperlipidemia, chronic sinusitis, GERD. She presented with urinary retention, lower abdominal pain, and bloating. She had bladder Botox injection on 11/[address] Doherty due to persistent issues with severe mixed incontinence with failure of multiple medications. She was seen by urology 5 days [facility] for a follow-up. She was having some issues with urinary retention and had a negative UA at that time. Her urinary retention worsened at home and she began feeling generally unwell. She was admitted for IV antibiotics for UTI. #UTI | urinary retention | pelvic floor dysfunction - history of severe mixed incontinence following abdominal bladder lift after hysterectomy and vaginal cystocele repair. Prior cystoscopy revealed severe urethral hypermobility. She underwent Bulkamid injections in August 2024 with minor improvement and subsequently underwent Botox bladder injections. Now with subsequent urinary retention. - UA grossly infected on admission. Urine culture grew pansensitive E. coli - Leukocytosis now resolved - Treated with IV ceftriaxone while hospitalized. Discharged on Augmentin through 11/25 - Cage catheter placed in ED - continue Cage catheter management daily. Maintain Cage catheter and she can follow-up with urology outpatient for a voiding trial - Continue tamsulosin - Urology consulted, follow-up outpatient #Hypertension | Hyperlipidemia continue losartan 100 mg daily, HCTZ 25 mg daily, propranolol 40 mg daily, ezetimibe 10 mg daily, KCl 10 mEq daily - Blood pressure soft 94/61 - asymptomatic - s/p 1 L NSS x 1 with improvement in BP #Fibromyalgia - uses medical marijuana at home for this. Will use Toradol PRN for pain while hospitalized #Anxiety | Insomnia - continue duloxetine 60 mg daily, trazodone 100 mg HS #Chronic sinusitis continue guaifenesin 600 mg daily #Vitamin D deficiency continue vitamin D3 25 mcg daily #Weight loss on Wegovy weekly outpatient Dispo: Discharged home 11/18 VTE PPx: Low risk, short LOS, ambulation Notes For Next Care Provider Medication Changes From Visit Augmentin twice daily through 11/25 Admission Exam Per Admitting Provider Leilani is a pleasant 54-year-old woman with past medical history of pelvic floor dysfunction, urge/stress incontinence, urinary retention, history of kidney stones, hypertension, hyperlipidemia, chronic sinusitis, GERD. She presented from home with urinary retention, lower abdominal pain, and bloating. At the time of my exam, the patient was lying in bed in no acute distress with her at bedside. She states she has a significant urological history and recently had Botox injected into her bladder on 11/01 due to urinary incontinence. Unfortunately this seems to have caused urinary retention. Leilani was recently seen by urology outpatient for urinary retention and believes it has gotten worse since her visit with them 5 days ago. She had a UA checked 5 days ago at her urology appointment which was negative for infection. Her UA in the ED on presentation was significantly infected. She has been self catheterizing at home but does not believe she is completely emptying her bladder. She also reports dysuria, generalized body aches, malaise, and chills x couple days. Hematuria started yesterday evening. Mild nausea began this morning. Patient reports that she took all of her regular morning medications today; only recent medication change was starting Flomax. She does not use supplemental oxygen at baseline. No CPAP at night. Vitals on admission are stable. Labs on admission are significant for leukocytosis with WBC 11.99 with neutrophil predominance, significantly infected UA. Renal function is normal. Electrolytes are normal. CT A/P on admission reveals findings suggestive of cystitis, no hydronephrosis no acute pyelonephritis, no bowel obstruction. We discussed code status, patient wishes to be a full code. Discharge Exam General: No acute distress, nondiaphoretic, well-developed, well-nourished. Skin: Warm, dry. No rashes or peripheral edema noted. Cardiac: Regular rate and rhythm without murmurs gallops or rubs. Pulm: Clear to auscultation bilaterally without wheezes, rales or rhonchi. Normal respiratory effort. 93% on room air. Abdominal: Soft, nondistended, nontender. Bowel sounds present. : Cage catheter with cookie urine. No CVA tenderness. Neuro: A&O x3. No focal neurological deficits. Discharge Plan Discharge Items Patient Disposition: Home - Self-Care Reason For Visit: UTI, URINARY RETENTION Discharge Diagnosis: UTI, urinary retention Condition on Discharge: Fair Activity: Resume your previous activity Non-emergency contact: Primary Care Provider and Urologist Call non-emergency contact if: you have any medication questions, your symptoms worsen and you have a fever Follow-up/Referrals: Malvin Doherty, [Physician] - (Follow-up within 2 weeks THE OFFICE WILL CALL YOU WITH A HOSPITAL FOLLOW UP VISIT.) Deion Rivera [Primary Care Provider] - 11/25/24 11:00 am (Follow-up in 1-2 weeks [facility]) Diet: Regular Addtl Attending Provider Instructions: Leilani, You were admitted to the hospital due to urinary retention and a UTI. You had a Cage catheter placed to resolve the urinary retention. You were treated with IV antibiotics while in the hospital and will continue taking oral antibiotics at home. Upon discharge from the hospital: * Take Augmentin (oral antibiotic) twice daily starting this evening 11/18 and continue it through 11/25. This is to treat your UTI. It is important to complete this course of antibiotics even if you feel better. Not finishing the antibiotics can result in the infection returning and/or can make future infections harder to treat. Side effects of oral antibiotics include GI upset. You can take this antibiotic with food to prevent nausea/vomiting/diarrhea. You could also take a probiotic daily, these are available [id number]. * Maintain your Cage catheter until you follow-up with urology outpatient. At this appointment, they will perform a voiding trial to determine if your Cage catheter needs to be continued or not. * You can use Tylenol or ibuprofen as needed for pain. * Continue your other home medications as prescribed. There have been no changes made to your usual home medications. * Follow-up with urology outpatient as directed. * Follow-up with your PCP within 1-2 weeks. Please return to the hospital if you experience any of the following: Fever of 101 F or higher, increasing pelvic/suprapubic/flank/back pain, persistent nausea with vomiting, no urine draining from your Cage catheter for more than 2 hours despite adequate hydration, leakage around the urinary catheter, dislodgment of the urinary catheter, severe pain at the catheter site, new or worsening blood in your urine (hematuria), confusion, chest pain, difficulty breathing, passing out, or any other symptoms concerning for you. It was a pleasure taking care of you while you were in the hospital, Sherri Phan PA-C Pending Studies at Discharge: No Stand-Alone Forms: My [facility], Smoking Cessation Medications and DC Order Prescriptions: New amoxicillin-pot clavulanate 875-125 mg tablet 1 tab PO BID Qty: 15 0RF Continued tamsulosin 0.4 mg capsule 0.4 mg PO HS Qty: 90 2RF potassium chloride 10 mEq Tablet Extended Release 10 meq PO QAM trazodone 100 mg Tablet 100 mg PO HS hydrochlorothiazide 25 mg Tablet 25 mg PO QAM ezetimibe 10 mg Tablet 10 mg PO QAM coenzyme Q10 [Co Q-10] 100 mg Capsule 100 mg PO QAM duloxetine 60 mg Capsule,Delayed Release(Dr/Ec) 60 mg PO QAM magnesium glycinate 100 mg Tablet 100 mg PO HS cholecalciferol (vitamin D3) [Vitamin D3] 25 mcg (1,000 unit) Tablet,Chewable 25 mcg PO DAILY red yeast rice 600 mg Tablet 600 mg PO HS Rx Instructions: give with meal/snack guaifenesin 600 mg Tablet Extended Release 12hr 600 mg PO QAM Super Beets 1 dose PO QAM Medical Marijuana 1 dose PO DAILY propranolol 80 mg tablet 40 mg PO QAM zinc gluconate 50 mg Tablet 50 mg PO QAM losartan 100 mg tablet 100 mg PO QAM Wegovy 2.4 mg/0.75 mL pen injector 2.4 mg SUBCUT WK Rx Instructions: Friday Discharge Orders: Discharge Order (Routine); Ordered 11/18/24 Ordered By: Sherri Fraser/Other Patient Handouts: UTIs, ED Cage Catheter, Care Admission Data Admit Date/Time: 11/16/24 12:39 Attending Provider: Jagdeep Laws Admit Provider: Jagdeep Laws Primary Care Provider: Deion Rivera Other Providers: Jagdeep Laws; Sean Meza Other Interventions: Discharge Summary Assessment (RN) Last Done: 11/18/24 11:07 Hospital Stay Data Consultations 11/16/24 12:31 ED Decision to Admit Stat 11/16/24 15:36 Consult Urology Routine Diagnostic Imagining Performed Abdomen/Pelvis CT 11/16/24 09:46 CT SCAN OF THE ABDOMEN AND PELVIS WITH IV CONTRAST CLINICAL HISTORY: Urinary retention. Back pain. COMPARISON STUDY: CT of the abdomen and pelvis September 01, 2024. TECHNIQUE: Following the IV administration of 94 cc of Optiray 320, CT scan of the abdomen and pelvis is performed from the lung bases to the proximal femora. Images are reviewed in the axial, sagittal, and coronal planes. IV contrast was administered without complication. A dose lowering technique was utilized adhering to the principles of ALARA. CT DOSE: 1394.17 mGy.cm FINDINGS: Visualized lung bases are unremarkable. No pneumatosis, free air or portal venous gas is present. The liver, spleen, right adrenal gland, kidneys and pancreas are unremarkable. There is no biliary or pancreatic ductal dilatation. A 3 cm left adrenal lesion measured near water attenuation prior unenhanced CT of September 01, 2024. This favors an adenoma. There is no hydronephrosis. A Cage balloon within the bladder is noted. The bladder is collapsed. There is moderate bladder wall thickening mild adjacent inflammation. There is no evidence for a bowel obstruction. The caliber and wall thickness of small and large bowel are normal. Major vasculature is patent. IMPRESSION: 1. Collapsed bladder containing a Cage balloon. Bladder wall thickening, mucosal hyperemia and moderate adjacent inflammation. The findings favor cystitis and could be correlated with urinalysis. 2. No bowel obstruction. No bowel wall thickening. 3. No hydronephrosis. No CT evidence for acute pyelonephritis. ACT 112: Negative or not required by law. Electronically signed by: Alessandro Yee M.D. 11/16/2024 11:41 AM Pending Results Patient Have Any Pending Studies at Discharge: No Discharge Instructions Given to Patient (Per Discharging Provider) Leilani, You were admitted to the hospital due to urinary retention and a UTI. You had a Cage catheter placed to resolve the urinary retention. You were treated with IV antibiotics while in the hospital and will continue taking oral antibiotics at home. Upon discharge from the hospital: * Take Augmentin (oral antibiotic) twice daily starting this evening 11/18 and continue it through 11/25. This is to treat your UTI. It is important to complete this course of antibiotics even if you feel better. Not finishing the antibiotics can result in the infection returning and/or can make future infections harder to treat. Side effects of oral antibiotics include GI upset. You can take this antibiotic with food to prevent nausea/vomiting/diarrhea. You could also take a probiotic daily, these are available [id number]. * Maintain your Cage catheter until you follow-up with urology outpatient. At this appointment, they will perform a voiding trial to determine if your Cage catheter needs to be continued or not. * You can use Tylenol or ibuprofen as needed for pain. * Continue your other home medications as prescribed. There have been no changes made to your usual home medications. * Follow-up with urology outpatient as directed. * Follow-up with your PCP within 1-2 weeks. Please return to the hospital if you experience any of the following: Fever of 101 F or higher, increasing pelvic/suprapubic/flank/back pain, persistent nausea with vomiting, no urine draining from your Cage catheter for more than 2 hours despite adequate hydration, leakage around the urinary catheter, dislodgment of the urinary catheter, severe pain at the catheter site, new or worsening blood in your urine (hematuria), confusion, chest pain, difficulty breathing, passing out, or any other symptoms concerning for you. It was a pleasure taking care of you while you were in the hospital, Sherri Phan PA-C Total Time Total Time Spent Total Time Spent (In Minutes): Greater than 30 minutes spent completing this discharge process including direct patient care, medication reconciliation, documentation, review of labs and images, and coordination of care. Coding Level of Care Code 48097 INP/OBS DISCH >30 MIN Diagnoses Urinary tract infection N30.01 Hematuria presence: with hematuria Urinary tract infection type: acute cystitis Acute urinary retention R33.8 Pelvic floor dysfunction M62.89 HTN (hypertension) I10 HLD (hyperlipidemia) E78.5"
== END 2024-11-18 14:12 | disposition home or self-care (01) ==
LOC: SUATTDRO → ED 09:21 → EDINP 09:21 → 3N 15:36

== ENCOUNTER 2024-11-30 10:42 | Inpatient (IN) ==
--- NOTE | 2024-11-30 11:10 | Emergency Department Note ---
ED Provider Note History of Present Illness Chief Complaint: Referred by Doctor Stated Complaint: LOW BP, DISORIENTED, REF BY DOC Time Seen by Provider: 11/30/24 10:54 54-year-old female who presents to the emergency department with her daughter (who also provides history) for evaluation of confusion, weakness and low blood pressure. The patient reports that she was recently admitted for a urinary tract infection. She was seen by her urologist recently and had her Cage catheter removed, and has been urinating without difficulty. The patient was started on a second antibiotic for questionable persistent infection. The patient has not noticed any blood in her urine. The patient reports that on Friday, her granddaughter was painting her fingernails, and she felt like she was going to pass out. The patient reports that she tried to sit down and landed on her buttocks. Since that time, the patient reports that she has continually declined. The patient has a history of hypertension, but did not take her losartan today as she had lab work to be performed today. She does report a strong family history of coronary artery disease and CVA. The patient reports that it feels like she sometimes cannot get her words out. She denies any difficulty swallowing. The patient did not eat any breakfast this morning in preparation for her labs. She currently rates her overall flank/back discomfort a 3 out of 10. She is concerned that her urologist has missed something with her kidneys. Home Medications Medication Instructions Recorded Confirmed Type Medical Marijuana 1 dose PO DAILY 09/10/24 11/30/24 History duloxetine 60 mg capsule,delayed 60 mg PO QAM 09/10/24 11/30/24 History release ezetimibe 10 mg tablet 10 mg PO QAM 09/10/24 11/30/24 History hydrochlorothiazide 25 mg tablet 25 mg PO QAM 09/10/24 11/30/24 History potassium chloride 10 mEq 10 meq PO QAM 09/10/24 11/30/24 History tablet,extended release tamsulosin 0.4 mg capsule 0.4 mg PO HS #90 caps 11/11/24 11/30/24 Rx propranolol 80 mg tablet 40 mg PO QAM 11/16/24 11/30/24 History semaglutide (weight loss) 2.4 2.4 mg subcut WK 11/16/24 11/30/24 History mg/0.75 mL subcutaneous pen injector (Aurelia) ampicillin 500 mg capsule 500 mg PO Q6H 10 days #40 caps 11/25/24 11/30/24 Rx bisacodyl 5 mg tablet,delayed 5 mg PO HS 11/30/24 11/30/24 History release (Laxative (bisacodyl)) omeprazole 20 mg capsule,delayed 20 mg PO QAM 11/30/24 11/30/24 History release Allergies Allergy/AdvReac Type Severity Reaction Status Date / Time kiwi Allergy Severe Anaphylaxis Unverified 11/30/24 13:45 morphine Allergy Intermediate felt like Verified 11/30/24 13:45 bugs crawling on skin, severe Sulfa (Sulfonamide AdvReac Intermediate Headache Verified 11/30/24 13:45 Antibiotics) Past Med/Surg History Problem List (Updated 11/30/24 @ 13:30 by Flaco Kc) Syncope (Acute) Acute alteration in mental status (Acute) Urinary tract infection (Acute) Acute urinary retention (Acute) Hernia Pelvic floor dysfunction (Chronic) Incontinence (Chronic) Medical History Chronic sinusitis History of anesthesia reaction BP went really high, needed a nitro patch at one point for it HLD (hyperlipidemia) HTN (hypertension) BP 118/78 at 01/2024 cardio appt History of kidney stones GERD (gastroesophageal reflux disease) Fibromyalgia History of anesthesia reaction did not move bowels for 10 days after last bladder sx, was hospitalized at [facility] for 4 days due to this, July 2020 Surgical History History of esophagogastroduodenoscopy (EGD) History of colonoscopy History of cholecystectomy "might" have had removed History of appendectomy Hx of vascular surgery to legs vein stripping [place] teeth extracted Hx of lithotripsy History of partial hysterectomy Hx of section x2 Hx of hernia repair Hx of sinus surgery History of bladder surgery x2, first one was done through abdomen Family History Brother Heart problem Social History Smoking Status: Never smoker Second Hand Exposure: No; Do You Dip or Chew Tobacco: No; Hx Alcohol Use: Yes Alcohol type: wine Hx Substance Use: No Preferred Language: Polish Communication Ability: Effective Visual Impairment: No Limitations Operations Research Analyst Required: No Beliefs That Will Affect Care: None Current Living Situation: Spouse Feels Safe at Home: Yes Assistive Devices: None Physical Exam Vital Signs Vital Signs - 24 hr 11/30/24 10:48 11/30/24 11:33 11/30/24 13:14 Temperature 36.7 C Temperature Source Oral Pulse Rate 74 70 70 Respiratory Rate 20 Respiratory Effort / Characteristics Non-Labored Spontaneous Respiratory Depth Normal Blood Pressure 130/91 Blood Pressure Mean 104 Pulse Oximetry 97 96 Oxygen Delivery Method Room Air Room Air Sepsis Recent Fever Within 48 Hours No Sepsis New/Unexplained Change in Mental Status N/A Sepsis Action Taken by Nursing No Action Required CONSTITUTIONAL: Healthy and well nourished. Alert and oriented X 3. GCS 15. HEENT: Normocephalic, atraumatic. Pupils equal, round and reactive. Ears and nares are clear. No posterior pharyngeal erythema. Mucous membranes are dry. NECK: Full active range of motion without discomfort. No JVD or carotid bruits. No nuchal rigidity. RESPIRATORY: Clear to auscultation bilaterally with no wheezing, crackles, rhonchi or stridor. CARDIOVASCULAR: Regular rate and rhythm with no murmurs, rubs or gallops. GASTROINTESTINAL: Bowel sounds present in all quadrants. Abdomen is soft and nontender to palpation. Negative CVA tenderness. Negative McBurney's point tenderness. MUSCULOSKELETAL: Full range of motion of all joints without discomfort. Equal handgrip bilaterally. No obvious tenderness to palpation through the thoracolumbar spine or paraspinous muscles. INTEGUMENTARY: No rash or other significant dermatologic conditions noted. HEMATOLOGIC: No ecchymosis or petechiae. PSYCHIATRIC: Positive affect. NEUROLOGIC: Cranial nerves II-XII grossly intact. No focal neurologic deficits noted. Negative pronator drift. Course Course Patient history and physical exam were performed. Nurses notes were reviewed. Vital signs reviewed from triage, and were normal with a blood pressure 130/91, although the patient reports that she was hypotensive this morning. IV access was established, and labs were ordered and drawn. The patient was hydrated with a liter of normal saline. She refused any analgesics. An ECG was performed, showing a normal sinus rhythm. The patient was placed on monitor technician while in the emergency department. Portable chest x-ray was normal. Noncontrast CT imaging of the head does not show evidence for intracranial bleed, midline shift or mass effect. CT with IV contrast of the chest, abdomen and pelvis was also performed without any concerning findings. CT with IV contrast of the thoracolumbar spine did not show evidence for any fractures she has given the patient's recent fall. Urinalysis was also unremarkable. Findings were discussed with the patient and her daughter. I also discussed the case further with Dr. Bowles, ED attending physician, who recommended hospitalist consultation for altered mental status. Patient was in agreement with this plan. I did discuss the case further with our Automatic Operator, who reached out to the [facility] hospitalist service. I did discuss the case with them as well, and they have agreed to evaluate the patient. Please see hospital service dictations for further treatment and final disposition. Administered Medications Discontinued Medications Gadobutrol (Gadobutrol 65ml Vial) 8 ml IV ONCE ONE Stop: 11/30/24 17:28 Last Admin: 11/30/24 17:28 Dose: 8 ml Documented By: VIKA Ioversol (Optiray 320 100ml) 94 ml IV ONCE ONE Stop: 11/30/24 12:42 Last Admin: 11/30/24 12:41 Dose: 94 ml Documented By: LAVERNE Medical Decision Making Medical Records Attestation: I reviewed the patient's medical records. Home Medications was personally reviewed by me Laboratory Data Attestation: I reviewed the patient's lab results. 11/30/24 11:30 11/30/24 11:30 Lab Results 11/30/24 11/30/24 Range/Units 11:30 12:35 WBC 7.46 (4.8-10.8) K/ul RBC 4.44 (4.20-5.40) M/uL Hgb 14.4 (12.0-16.0) g/dl Hct 40.7 (37.0-47.0) % MCV 91.7 (80.0-100.0) fL MCH 32.4 (25.0-34.0) pg MCHC 35.4 (32.0-36.0) g/dL RDW Std Deviation 41.6 (36.4-46.3) fL RDW Coeff of Nancy 12.3 (11.5-14.5) % Plt Count 330 (130-400) K/uL MPV 8.8 L (9.4-12.4) fL Immature Gran % (Auto) 0.1 % Neut % (Auto) 63.2 % Lymph % (Auto) 27.9 % Page % (Auto) 6.4 % Eos % (Auto) 2.0 % Baso % (Auto) 0.4 % Neut # (Auto) 4.71 (1.40-6.50) K/uL Lymph # (Auto) 2.08 (1.20-3.40) K/uL Page # (Auto) 0.48 (0.11-0.59) K/uL Eos # (Auto) 0.15 (0.00-0.50) K/uL Baso # (Auto) 0.03 (0.00-0.20) K/uL Immature Gran # (Auto) 0.01 (0.01-0.20) K/uL PT Cancelled 10.5 INR Cancelled 1.0 Sodium 141 (136-145) mmol/L Potassium 4.1 (3.5-5.1) mmol/L Chloride 103 (98-107) mmol/L Carbon Dioxide 32 (21-32) mmol/L Anion Gap 6 (3-11) BUN 16 (6-23) mg/dl Creatinine 0.74 (0.6-1.2) mg/dl Est Cr Clr Drug Dosing 89.2 ml/min eGFR 96.09 BUN/Creatinine Ratio 21.6 H (10-20) Glucose 96 (70-99(Fasting)) mg/dl Calcium 9.3 (8.6-10.3) mg/dl Magnesium 2.2 (1.7-2.4) mg/dl Total Bilirubin 0.8 (0.2-1.0) mg/dl AST 19 (13-39) U/L ALT 21 (7-52) U/L Alkaline Phosphatase 68 (34-104) U/L Total Creatine Kinase 55 (26-192) U/L Troponin I High Sens < 2.3 (0-14) pg/ml Total Protein 7.0 (6.0-8.3) gm/dl Albumin 4.3 (3.4-5.0) gm/dl Globulin 2.7 (2.5-4.0) gm/dl Albumin/Globulin Ratio 1.6 (0.9-2) TSH 0.605 (0.300-4.500) uIu/ml Imaging Data Attestation: I personally reviewed and interpreted this imaging study as follows: My Impression: My interpretation of a portable chest x-ray does not show evidence for pneumonia, pneumothorax or cardiomegaly. My interpretation of a noncontrast CT scan of the head does not show evidence for intracranial bleed, midline shift or mass effect. My interpretation of a CT with IV contrast of the chest, abdomen and pelvis does not show any pneumonia, pneumothorax,, bowel obstruction, diverticulitis, appendicitis or other acute intra-abdominal findings. My interpretation of a CT with IV contrast of the thoracolumbar spine does not show evidence for any fractures from the patient's recent fall. Radiologist reports were also reviewed with concurrence. Radiologist's Impression: Abdomen/Pelvis CT 11/30/24 11:[address] WITH IV CONTRAST CT DOSE: 3895 HISTORY: Bilat flank pain TECHNIQUE: Multiaxial CT images of the abdomen and pelvis were performed following the IV administration of 90 cc of Optiray, A dose lowering technique was utilized adhering to the principles of ALARA. COMPARISON STUDY: 11/16/2024 FINDINGS: ABDOMEN: Liver, gallbladder, spleen, pancreas, and adrenal glands and kidneys show no evidence of acute injury. There is a stable 3 cm nodule at the left adrenal gland, previously characterized as adenoma on 09/01/2024 CT.. No evidence of abdominal aortic injury or aneurysm. There are mild atherosclerotic calcifications at the aorta. Pelvis: Uterus is absent. No adnexal mass. Urinary bladder is distended, otherwise unremarkable. No bowel inflammation or obstruction. No free fluid or free air. No enlarged adenopathy. Osseous structures: No acute fracture seen of the visualized osseous structures. IMPRESSION: No acute injury seen at the abdomen or pelvis. Otherwise as described. ACT 112: Negative or not required by law. The above report was generated using voice recognition software. It may contain grammatical, syntax or spelling errors. Electronically signed by: Robbie Brennan M.D. 11/30/2024 1:04 PM Chest X-Ray 11/30/24 11:07 XR chest 1V portable CLINICAL HISTORY: weakness COMPARISON STUDY: 09/03/2024 FINDINGS: Heart size and pulmonary vasculature are normal. No consolidation or pleural effusion. No pneumothorax. IMPRESSION: No acute findings. ACT 112: Negative or not required by law. Electronically signed by: Robbie Brennan M.D. 11/30/2024 12:[address] 11/30/24 11:07 CT SCAN OF THE BRAIN WITHOUT IV CONTRAST CLINICAL HISTORY: Confusion. COMPARISON STUDY: None. TECHNIQUE: Unenhanced axial CT scan of the brain was performed from the vertex to the skull base. A dose lowering technique was utilized adhering to the principles of ALARA. FINDINGS: Brain parenchyma: No acute intracranial hemorrhage, midline shift or mass effect is present. [place]-white matter differentiation is preserved. There are no extra- axial fluid collections. There are no findings to suggest acute dural sinus thrombosis or acute territorial infarct. Ventricles, sulci, cisterns: There is no hydrocephalus. The basal cisterns are patent. Calvarium: There are no calvarial fracture. Sinuses and mastoids: The right sphenoid sinus is largely opacified. Right maxillary sinus mucosal thickening with small air-fluid level is present. There are postoperative findings within the sinuses. Orbits: The bony orbits are grossly intact. IMPRESSION: No acute intracranial findings. ACT 112: Negative or not required by law. Electronically signed by: Alessandro Yee M.D. 11/30/2024 12:[address] 11/30/24 11:[address] WITH CONTRAST HISTORY: Back/flank pain, disoriented TECHNIQUE: Multiaxial CT images of the chest were performed following the IV administration of 90 cc of Optiray. A dose lowering technique was utilized adhering to the principles of ALARA. COMPARISON STUDY: None FINDINGS: There is no pulmonary consolidation or pleural effusion. No pneumothorax. No enlarged adenopathy. No mediastinal hematoma. No thoracic aortic injury. No pericardial effusion. No pulmonary embolism. No acute fracture seen at the visualized osseous structures. IMPRESSION: No acute findings. ACT 112: Negative or not required by law. Electronically signed by: Robbie Brennan M.D. 11/30/2024 12:[address] 11/30/24 11:10 CT thoracic spine w con, CT lumbar spine w con HISTORY: 54 years-old Female Back pain s/p fall acute mid to low back pain status post fall COMPARISON: CT chest, abdomen and pelvis of same day, CT abdomen and pelvis 11/16/2024 TECHNIQUE: Multiple axial CT images of the thoracic and lumbar spine were obtained with IV contrast. A dose lowering technique was used consistent with the principals of ALARA. FINDINGS: CT THORACIC: Mild multilevel intervertebral disc space narrowing, spondylitic spurring and facet arthrosis. No acute fracture, subluxation or endplate erosion. The imaged ribs appear intact. Small left paracentral/left lateral recess disc protrusion at T8-T9. At T11-T12 there is a 7 mm left lateral recess disc protrusion on image 419. No significant central canal or neural foraminal narrowing. Small fat filled left Bochdalek hernia. CT LUMBAR: No acute fracture, subluxation or endplate erosion. Mild multilevel spondylotic spurring with moderate facet arthrosis. Mild to moderate degeneration of the SI joints. 2.0 x 0.7 cm left foraminal/far lateral extraforaminal disc protrusion at L4-L5 causes moderate left foraminal narrowing. IMPRESSION: No acute fracture or subluxation of the thoracic or lumbar spine identified. ACT 112: Negative or not required by law. The above report was generated using voice recognition software. It may contain grammatical, syntax or spelling errors. Electronically signed by: Carlos Boyce M.D. 11/30/2024 1:[address] 11/30/24 11:10 CT thoracic spine w con, CT lumbar spine w con HISTORY: 54 years-old Female Back pain s/p fall acute mid to low back pain status post fall COMPARISON: CT chest, abdomen and pelvis of same day, CT abdomen and pelvis 11/16/2024 TECHNIQUE: Multiple axial CT images of the thoracic and lumbar spine were obtained with IV contrast. A dose lowering technique was used consistent with the principals of ALARA. FINDINGS: CT THORACIC: Mild multilevel intervertebral disc space narrowing, spondylitic spurring and facet arthrosis. No acute fracture, subluxation or endplate erosion. The imaged ribs appear intact. Small left paracentral/left lateral recess disc protrusion at T8-T9. At T11-T12 there is a 7 mm left lateral recess disc protrusion on image 419. No significant central canal or neural foraminal narrowing. Small fat filled left Bochdalek hernia. CT LUMBAR: No acute fracture, subluxation or endplate erosion. Mild multilevel spondylotic spurring with moderate facet arthrosis. Mild to moderate degeneration of the SI joints. 2.0 x 0.7 cm left foraminal/far lateral extraforaminal disc protrusion at L4-L5 causes moderate left foraminal narrowing. IMPRESSION: No acute fracture or subluxation of the thoracic or lumbar spine identified. ACT 112: Negative or not required by law. The above report was generated using voice recognition software. It may contain grammatical, syntax or spelling errors. Electronically signed by: Carlos Boyce M.D. 11/30/2024 1:05 PM ECG Data Attestation: I personally reviewed and interpreted this ECG as follows: Indication: + altered mental status and + back/shoulder pain Rate (beats per minute): 75 Rhythm: + normal sinus ECG Intervals/blocks: + Normal QRS, + Normal QT and + Normal NH ECG Morrison: + Normal ECG ST segments: + Normal ST segments Comparison ECG Date: from (09/03/2024) Change: no significant change MDM Narrative Cardiac monitoring: An order was placed for continuous cardiac monitoring. The monitor shows a rate of 75 bpm with a normal sinus rhythm. threat monitoring analyst history was reviewed throughout the evaluation, and no dysrhythmias were noted. See ED Course section for further details of today's visit. The patient sustained a syncopal episode on Friday while not performing any strenuous activities. Since that time, the patient and family reports that she has been disoriented. The patient is also disoriented on today's history collection. Today's workup does not identify the cause for the patient's altered mental status. The patient did agree with admission for further workup. Workup today so far has not shown any electrolyte abnormalities. The patient is euthyroid. She is not febrile, nor does she have any leukocytosis or current hypotension to suggest sepsis. Urinalysis does not show evidence for infection, having recently been treated for a UTI. CT imaging of the abdomen does not show evidence for diverticulitis, appendicitis or bowel obstruction. Exact cause for the patient's altered mental status is uncertain at this time. I do question the possibility of TIA. The patient does not have any CT or neurologic findings to suggest CVA. It was felt that the patient warranted admission/observation for symptoms. The case was also discussed with Dr. Bowles, ED attending physician, who agrees with workup and admission planning. Impression Acute alteration in mental status, Syncope Discharge Plan Visit Data Chief Complaint: Referred by Doctor Stated Complaint: LOW BP, DISORIENTED, REF BY DOC ED Provider: Abdirizak Bowles ED Midlevel Provider: Flaco Kc Discharge Problem: Acute alteration in mental status, Syncope Patient Disposition: Admitted As Inpatient Condition: Fair Discharge Instructions Interventions: ED Discharge Assessment Last Done: 11/30/24 16:46 ED DC CONDITION Conditon at Discharge Condition at Discharge: Fair Discharge Problem: Syncope Qualifiers: Encounter type: initial encounter
[2024-11-30 11:42] LABS: Hematocrit (blood only) 40.7 % (37.0-47.0); Hemoglobin 14.4 g/dl (12.0-16.0); Immature Granulocytes # (auto) 0.01 K/uL (0.01-0.20); Immature Granulocytes % (auto) 0.1 %; Mean Corpuscular Hemoglobin 32.4 pg (25.0-34.0); Mean Corpuscular Volume 91.7 fL (80.0-100.0); Platelet Count 330 K/uL (130-400); RDW Standard Deviation 41.6 fL (36.4-46.3); Red Blood Count 4.44 M/uL (4.20-5.40); White Blood Count 7.46 K/ul (4.8-10.8)
[2024-11-30 11:59] LABS: Alanine Aminotransferase 21 U/L (7-52); Albumin Globulin Ratio 1.6 (0.9-2); Alkaline Phosphatase 68 U/L (34-104); Anion Gap 6 (3-11); Bilirubin,Total 0.8 mg/dl (0.2-1.0); Blood Urea Nitrogen 16 mg/dl (6-23); Calcium 9.3 mg/dl (8.6-10.3); Carbon Dioxide 32 mmol/L (21-32); Chloride 103 mmol/L (98-107); Creatine Kinase 55 U/L (26-192); Creatinine Clr Calc Pharmacy 89.2 ml/min; Globulin 2.7 gm/dl (2.5-4.0); Glucose 96 mg/dl (70-99(Fasting)); Magnesium 2.2 mg/dl (1.7-2.4); Potassium 4.1 mmol/L (3.5-5.1); Sodium 141 mmol/L (136-145); Total Protein 7.0 gm/dl (6.0-8.3)
--- NOTE | 2024-11-30 12:06 | XRay Report ---
XR chest 1V portable CLINICAL HISTORY: weakness COMPARISON STUDY: 09/03/2024 FINDINGS: Heart size and pulmonary vasculature are normal. No consolidation or pleural effusion. No p neumothorax. IMPRESSION: No acute findings. ACT 112: Negative or not required by law. Electronically signed by: Robbie Brennan M.D. 11/30/2024 12:05 PM
[2024-11-30 12:14] LABS: Thyroid Stimulating Hormone 0.605 uIu/ml (0.300-4.500)
[2024-11-30] MEDS: OPTIRAY 320 100ml IV ONE (12:41)
--- NOTE | 2024-11-30 12:45 | CT Scan Report ---
CT SCAN OF THE BRAIN WITHOUT IV CONTRAST CLINICAL HISTORY: Confusion. COMPARISON STUDY: None. TECHNIQUE: Unenhanced axial CT scan of the brain was performed from the vertex to the skull base. A dose lowering technique was utilized adhering to the principles of ALARA. FINDINGS: Brain parenchyma: No acute intracranial hemorrhage, midline shift or mass effect is present. [place]-whi te matter differentiation is preserved. There are no extra-axial fluid collections. There are no find ings to suggest acute dural sinus thrombosis or acute territorial infarct. Ventricles, sulci, cisterns: There is no hydrocephalus. The basal cisterns are patent. Calvarium: There are no calvarial fracture. Sinuses and mastoids: The right sphenoid sinus is largely opacified. Right maxillary sinus mucosal th ickening with small air-fluid level is present. There are postoperative findings within the sinuses. Orbits: The bony orbits are grossly intact. IMPRESSION: No acute intracranial findings. ACT 112: Negative or not required by law. Electronically signed by: Alessandro Yee M.D. 11/30/2024 12:43 PM
--- NOTE | 2024-11-30 12:53 | CT Scan Report ---
CHEST CT WITH CONTRAST HISTORY: Back/flank pain, disoriented TECHNIQUE: Multiaxial CT images of the chest were performed following the IV administration of 90 cc of Optiray. A dose lowering technique was utilized adhering to the principles of ALARA. COMPARISON STUDY: None FINDINGS: There is no pulmonary consolidation or pleural effusion. No pneumothorax. No enlarged adeno mario. No mediastinal hematoma. No thoracic aortic injury. No pericardial effusion. No pulmonary embo lism. No acute fracture seen at the visualized osseous structures. IMPRESSION: No acute findings. ACT 112: Negative or not required by law. Electronically signed by: Robbie Brennan M.D. 11/30/2024 12:52 PM
--- NOTE | 2024-11-30 13:06 | CT Scan Report ---
CT thoracic spine w con, CT lumbar spine w con HISTORY: 54 years-old Female Back pain s/p fall acute mid to low back pain status post fall COMPARISON: CT chest, abdomen and pelvis of same day, CT abdomen and pelvis 11/16/2024 TECHNIQUE: Multiple axial CT images of the thoracic and lumbar spine were obtained with IV contrast. A dose lowering technique was used consistent with the principals of MEERA. FINDINGS: CT THORACIC: Mild multilevel intervertebral disc space narrowing, spondylitic spurring and facet arth rosis. No acute fracture, subluxation or endplate erosion. The imaged ribs appear intact. Small left paracentral/left lateral recess disc protrusion at T8-T9. At T11-T12 there is a 7 mm left lateral rec ess disc protrusion on image 419. No significant central canal or neural foraminal narrowing. Small f at filled left Bochdalek hernia. CT LUMBAR: No acute fracture, subluxation or endplate erosion. Mild multilevel spondylotic spurring w ith moderate facet arthrosis. Mild to moderate degeneration of the SI joints. 2.0 x 0.7 cm left eduardo inal/far lateral extraforaminal disc protrusion at L4-L5 causes moderate left foraminal narrowing. IMPRESSION: No acute fracture or subluxation of the thoracic or lumbar spine identified. ACT 112: Negative or not required by law. The above report was generated using voice recognition software. It may contain grammatical, syntax o r spelling errors. Electronically signed by: Carlos Boyce M.D. 11/30/2024 1:05 PM
--- NOTE | 2024-11-30 13:06 | CT Scan Report ---
ABDOMEN AND PELVIS CT WITH IV CONTRAST CT DOSE: 3895 HISTORY: Bilat flank pain TECHNIQUE: Multiaxial CT images of the abdomen and pelvis were performed following the IV administrat ion of 90 cc of Optiray, A dose lowering technique was utilized adhering to the principles of ALARA. COMPARISON STUDY: 11/16/2024 FINDINGS: ABDOMEN: Liver, gallbladder, spleen, pancreas, and adrenal glands and kidneys show no evidence of acu te injury. There is a stable 3 cm nodule at the left adrenal gland, previously characterized as adeno ma on 09/01/2024 CT.. No evidence of abdominal aortic injury or aneurysm. There are mild atherosclerot ic calcifications at the aorta. Pelvis: Uterus is absent. No adnexal mass. Urinary bladder is distended, otherwise unremarkable. No b owel inflammation or obstruction. No free fluid or free air. No enlarged adenopathy. Osseous structures: No acute fracture seen of the visualized osseous structures. IMPRESSION: No acute injury seen at the abdomen or pelvis. Otherwise as described. ACT 112: Negative or not required by law. The above report was generated using voice recognition software. It may contain grammatical, syntax o r spelling errors. Electronically signed by: Robbie Brennan M.D. 11/30/2024 1:04 PM
[2024-11-30 13:17] LABS: Appearance Urine Clear (Clear); Glucose Urine UA Negative (Negative)
[2024-11-30 13:24] LABS: INR 1.0 (0.9-1.1); Prothrombin Time 10.5 Seconds (9.0-12.0)
--- NOTE | 2024-11-30 14:18 | History & Physical Report ---
Date of Service November 30, 2024 Assessment & Plan (1) Acute alteration in mental status: (2) HTN (hypertension): (3) HLD (hyperlipidemia): Abrahan Duke is a pleasant 54-year-old woman with past medical history of pelvic floor dysfunction, urge/stress incontinence, urinary retention, history of kidney stones, hypertension, hyperlipidemia, chronic sinusitis, GERD. She presents with spells of altered mental status #Altered mental status - with multiple spells at home and reports 2-3 spells last admission thought to be related to hypotension. Workup on admission unremarkable, head CT without acute findings, electrolytes stable, no signs of infectious cause. Check Brain MRI - r/o stroke and mass. Check lipids and A1c hold medical Marijuana - pt reports only using topical for arthritis pains Check orthostatic vital signs Monitor on tele for potential cardiac cause Consider EEG if workup remains unremarkable Not on sedating meds #HTN - with episodes of hypotension last hospital stay, weight loss of 55lbs in the last year with Wegovy and propranolol decreased from 80 to 40 this year, and losartan stopped on 11/27 Hold HCTZ Continue propanol to prevent rebound, but will decrease to 20mg Check orthostatic vital signs #HLD - continue zetia #Mental health - continue Cymbalta #recurrent UTI UA without signs of infection Continue flomax #Obesity Hold wegovy, no recent dose increase. Lost 55 lbs in the last year Dispo: admit to med/tele DVT proh: pending brain MRI History of Present Illness Primary Care Provider: Deion Duke is a pleasant 54-year-old woman with past medical history of pelvic floor dysfunction, urge/stress incontinence, urinary retention, history of kidney stones, hypertension, hyperlipidemia, chronic sinusitis, GERD. She presents with spells of altered mental status. Reportedly has 2-3 spells during her last inpatient stay when her blood pressure was low and responded with IV fluids. Discharged home on oral antibiotics and feel like she has just not rebounded since. Has had 3 further spells since discharge. Has a spell on friday while sitting at the table, family reports that she did not loose consciousness as she was trying to talk during the whole event, but had slurred speech and did not make sense. Fell and landed on her butt, family does not think she hit her head, but patient does not recall the fall at all. Had another episode this morning when going to an outpatient appointment, did not feel well and checked her Blood pressure and it was low and sent her to the ER. She does endorse family history of seizures and TIA. Denies any new medication changes. Recent restarted on flomax. losartan was discontinued on Friday and decreased her propranolol ~ a month ago. Uses medical marijuana topically most nights for arthritis pain, no edibles or ingestions Allergies Allergy/AdvReac Type Severity Reaction Status Date / Time kiwi Allergy Severe Anaphylaxis Unverified 11/30/24 13:45 morphine Allergy Intermediate felt like Verified 11/30/24 13:45 bugs crawling on skin, severe Sulfa (Sulfonamide AdvReac Intermediate Headache Verified 11/30/24 13:45 Antibiotics) Home Medications Medication Instructions Recorded Confirmed Type Medical Marijuana 1 dose PO DAILY 09/10/24 11/30/24 History duloxetine 60 mg capsule,delayed 60 mg PO QAM 09/10/24 11/30/24 History release ezetimibe 10 mg tablet 10 mg PO QAM 09/10/24 11/30/24 History hydrochlorothiazide 25 mg tablet 25 mg PO QAM 09/10/24 11/30/24 History potassium chloride 10 mEq 10 meq PO QAM 09/10/24 11/30/24 History tablet,extended release tamsulosin 0.4 mg capsule 0.4 mg PO HS #90 caps 11/11/24 11/30/24 Rx propranolol 80 mg tablet 40 mg PO QAM 11/16/24 11/30/24 History semaglutide (weight loss) 2.4 2.4 mg subcut WK 11/16/24 11/30/24 History mg/0.75 mL subcutaneous pen injector (Wegovy) ampicillin 500 mg capsule 500 mg PO Q6H 10 days #40 caps 11/25/24 11/30/24 Rx bisacodyl 5 mg tablet,delayed 5 mg PO HS 11/30/24 11/30/24 History release (Laxative (bisacodyl)) omeprazole 20 mg capsule,delayed 20 mg PO QAM 11/30/24 11/30/24 History release Past Med/Surg History Problem List (Updated 11/30/24 @ 13:30 by Flaco Kc) Syncope (Acute) Acute alteration in mental status (Acute) Urinary tract infection (Acute) Acute urinary retention (Acute) Hernia Pelvic floor dysfunction (Chronic) Incontinence (Chronic) Medical History Chronic sinusitis History of anesthesia reaction BP went really high, needed a nitro patch at one point for it HLD (hyperlipidemia) HTN (hypertension) BP 118/78 at 01/2024 cardio appt History of kidney stones GERD (gastroesophageal reflux disease) Fibromyalgia History of anesthesia reaction did not move bowels for 10 days after last bladder sx, was hospitalized at [facility] for 4 days due to this, July 2020 Surgical History History of esophagogastroduodenoscopy (EGD) History of colonoscopy History of cholecystectomy "might" have had removed History of appendectomy Hx of vascular surgery to legs vein stripping [place] teeth extracted Hx of lithotripsy History of partial hysterectomy Hx of section x2 Hx of hernia repair Hx of sinus surgery History of bladder surgery x2, first one was done through abdomen Family History Brother Heart problem Social History Smoking Status: Never smoker Second Hand Exposure: No; Do You Dip or Chew Tobacco: No; Hx Alcohol Use: Yes Alcohol type: wine Hx Substance Use: No Preferred Language: Turkish Communication Ability: Effective Visual Impairment: No Limitations Grade And Center Marker Required: No Beliefs That Will Affect Care: None Current Living Situation: Spouse Feels Safe at Home: Yes Assistive Devices: None Review of Systems Review of Systems: All systems reviewed & are unremarkable except as noted in Subjective Physical Exam Physical Exam: General: NAD, VS as above HEENT; EOMI, no nystagmus Resp: normal respiratory effort, lungs clear to auscultation CV: RRR, no murmur, Abd: normal bowel sounds, non tender, no hepatosplenomegaly Extremities: Moves all extremities, no edema Neuro: A&O x3, no gross neuro deficits, strength and sensation intact to upper and lower extremities, able to complete rapid sequencing movements without issue Skin: intact, no lesions noted Results & Data Results & Data Vital Signs (Past 12 Hours) Vital Signs Temp Pulse Resp BP Pulse Ox O2 Del Method 11/30/24 13:14 70 11/30/24 11:33 70 96 Room Air 11/30/24 10:48 98.1 F 74 20 130/91 97 Room Air Laboratory Results cbc and chemistry reviewed UA reviewed Diagnostic Findings CT t spine CT l spine reviewed Chest CT reviewed head CT reviewed CT A/p reviewed PG Care Time/CCT Total # of Minutes Spent Total Time Spent with Patient: Total time spent is greater than 50% in coordination of care (as documented) at patient's floor/unit and/or counseling patient: Coding Level of Care Code 06717 INT INP/OBS CARE 3/75MIN Diagnoses Acute alteration in mental status R41.82 HTN (hypertension) I10 HLD (hyperlipidemia) E78.5
[2024-11-30] MEDS ORDERED: ONDANSETRON INJ 2 MG/ML 2 ML VIAL IV PRN (16:46)
[2024-11-30] MEDS ORDERED: POLYETHYLENE (MIRALAX) 17 GM PACK PO PRN (16:46)
[2024-11-30] MEDS: GADOBUTROL 65ML VIAL IV ONE (17:28)
--- NOTE | 2024-11-30 18:21 | Magnetic Resonance Report ---
Clinical history: Stroke symptoms Technique: Multiple T1 and T2-weighted magnetic resonance images were obtained of the brain both before and after the administration of 8 cc of Gadavist intravenous gadolinium contrast Findings: There is no sign of acute or old infarction with normal-appearing diffusion weighted images. No definite focus of demyelination is seen. No mass lesion or other area of abnormal enhancement is identified. There is no intracranial hemorrhage or other fluid collection. No midline shift or other form of herniation is seen. There is no hydrocephalus. The pituitary gland appears normal. Normal flow-voids are seen within the arteries of the [id number]. The orbits appear unremarkable. There is mucosal thickening in the right maxillary and right sphenoid sinuses and there is a small left maxillary sinus mucus retention cyst. The mastoid air cells appear clear Impression: 1. Normal-appearing brain 2. Mild chronic sinusitis Electronically signed by Sd Childress 11-30-2024 6:20 PM
[2024-11-30] MEDS: TAMSULOSIN HCL 0.4 MG CAP PO SCH (20:07)
[2024-11-30] MEDS: ACETAMINOPHEN 325 MG TAB PO PRN (20:07)
[2024-12-01 08:03] LABS: Hematocrit (blood only) 38.2 % (37.0-47.0); Hemoglobin 13.4 g/dl (12.0-16.0); Mean Corpuscular Hemoglobin 31.8 pg (25.0-34.0); Mean Corpuscular Volume 90.5 fL (80.0-100.0); Platelet Count 292 K/uL (130-400); RDW Standard Deviation 40.2 fL (36.4-46.3); Red Blood Count 4.22 M/uL (4.20-5.40); White Blood Count 7.28 K/ul (4.8-10.8)
[2024-12-01 08:29] LABS: Anion Gap 7.0 (3-11); Blood Urea Nitrogen 16.0 mg/dl (6-23); Calcium 8.9 mg/dl (8.6-10.3); Carbon Dioxide 30.0 mmol/L (21-32); Chloride 103.0 mmol/L (98-107); Cholesterol 177.0 mg/dl (0-200); Creatinine Clr Calc Pharmacy 122.3 ml/min; Glucose 98.0 mg/dl (70-99(Fasting)); HDL Cholesterol 43.0 mg/dl; Potassium 3.4 mmol/L (3.5-5.1); Sodium 140.0 mmol/L (136-145); Triglycerides 156.0 mg/dl (0-150)
[2024-12-01] MEDS: EZETIMIBE 10 MG TAB PO SCH (08:36)
[2024-12-01 08:51] LABS: Hemoglobin A1C 5.4 % (4.5-5.6)
[2024-12-01] MEDS: POTASSIUM CHLORIDE CRTAB 20 MEQ TABCR PO STA (09:15)
--- NOTE | 2024-12-01 09:49 | Hospitalist Progress Note ---
"Date of Service December 01, 2024 Assessment & Plan (1) Acute alteration in mental status: (2) HTN (hypertension): (3) HLD (hyperlipidemia): Plan Leilani is a pleasant 54-year-old woman with past medical history of pelvic floor dysfunction, urge/stress incontinence, urinary retention, history of kidney stones, hypertension, hyperlipidemia, chronic sinusitis, GERD. She presents with spells of altered mental status #Altered mental status - with multiple spells at home and reports 2-3 spells last admission thought to be related to hypotension. Workup on admission unremarkable, head CT without acute findings, electrolytes stable, no signs of infectious cause. Brain MRI without acute or old stroke. hold medical Marijuana - pt reports only using topical for arthritis pains. Not on sedating meds Orthostatic VS neg x 2 Monitor on tele for potential cardiac cause Suspect this is largely related to patients low blood pressure. Plan to hold Flomax tonight, monitor for urinary retention #HTN - with episodes of hypotension last hospital stay, weight loss of 55lbs in the last year with Wegovy and propranolol decreased from 80 to 40 this year, and losartan stopped on 11/27 discontinued HCTZ Continue propanol to prevent rebound, but will decrease to 20mg with intention to wean off completely #HLD - continue zetia #Mental health - continue Cymbalta #recurrent UTI | Urinary retention UA without signs of infection hold flomax bladder scan for PVR after each void starting tomorrow, bladder scan prn #Obesity Hold wegovy, no recent dose increase. Lost 55 lbs in the last year Dispo: continued inpatient stay, monitor BP DVT proh: encourage ambulation, low risk Admission and Anticipated Discharge Date Admission Date: November 30, 2024 Subjective Patient seen lying in bed, reports no spells overnight and feeling better this morning BP lower this morning but asymptomatic no bowel movement but this is baseline for her did have some urinary dribbling last night tele - SR 70-90s Review of Systems Review of Systems: All systems reviewed & are unremarkable except as noted in Subjective Physical Exam Physical Exam: General: NAD, VS as above, appears well Resp: normal respiratory effort, lungs clear to auscultation CV: RRR, no murmur, Abd: normal bowel sounds, non tender, no hepatosplenomegaly Extremities: Moves all extremities, no edema Neuro: A&O x3, no gross neuro deficits, Skin: intact, no lesions noted Results & Data Results & Data Vital Signs (Past 12 Hours) Vital Signs Temp Pulse Pulse Resp BP Pulse Ox O2 Del Method 12/01/24 07:00 97.9 F 70 18 90/69 L 96 Room Air 12/01/24 03:13 98.1 F 83 16 111/76 97 Room Air 11/30/24 23:06 97.7 F 79 16 95/64 L 95 Room Air 11/30/24 21:57 80 Laboratory Results cbc, chemistry, lipids and A1c reviewed Diagnostic Findings brain MRI reviewed PG Care Time/CCT Total # of Minutes Spent Total Time Spent with Patient: Total time spent is greater than 50% in coordination of care (as documented) at patient's floor/unit and/or counseling patient: Coding Level of Care Code 57633 SUB INP/OBS CARE 3/50MIN Diagnoses Acute alteration in mental status R41.82 HTN (hypertension) I10 HLD (hyperlipidemia) E78.5"
[2024-12-01] MEDS: PROPRANOLOL HCL 20 MG TAB PO SCH (11:19)
--- NOTE | 2024-12-01 12:07 | Electrocardiogram Report ---
Test Reason : Blood Pressure : */* mmHG Vent. Rate : 75 BPM Atrial Rate : 75 BPM P-R Int : 130 ms QRS Dur : 90 ms QT Int : 392 ms P-R-T Axes : 45 21 47 degrees QTcB Int : 437 ms Normal sinus rhythm Normal ECG When compared with ECG of 03-Sep-2024 12:44, No significant change was found Confirmed by Gus Guzman ([id number]) on 12/01/2024 12:07:05 PM Referred By: Clare Bennett Confirmed By: Gus Guzman
[2024-12-01] MEDS: KETOROLAC TROMETHAMINE 10 MG TABLET PO PRN (14:33)
[2024-12-01] MEDS ORDERED: DOCUSATE SODIUM/SENNA 50/8.6MG TAB PO PRN (15:46)
[2024-12-01] MEDS ORDERED: DOCUSATE SODIUM 100 MG CAP PO PRN (18:19)
[2024-12-02 03:50] VITALS: O2SAT 98
[2024-12-02 08:30] VITALS: BP 117/80; PULSE 80; RESP 19; TEMP 97.9
--- NOTE | 2024-12-02 11:01 | Discharge Summary ---
Discharge Summary Date of Service December 02, 2024 Principal Dx & Hospital Course #1 = Principal Diagnosis (1) Acute alteration in mental status: (2) HTN (hypertension): (3) HLD (hyperlipidemia): Plan #Altered mental status Leilani is a pleasant 54-year-old woman with past medical history of pelvic floor dysfunction, urge/stress incontinence, urinary retention, history of kidney stones, hypertension, hyperlipidemia, chronic sinusitis, GERD. She presents with spells of altered mental status with multiple "spells" at home and reports 2-3 spells last admission thought to be related to hypotension. Workup on admission unremarkable, head CT without acute findings, electrolytes stable, no signs of infectious cause. Brain MRI without acute or old stroke. Orthostatic VS neg x 2. no cardiac abnormality on telemetry. No further spells while inpatient with changing of blood pressure medications Monitor on tele for potential cardiac cause #HTN - with episodes of hypotension last hospital stay, weight loss of 55lbs in the last year with Wegovy and propranolol decreased from 80 to 40 this year, and losartan stopped on 11/27. discontinued HCTZ. will continue to wean off propranolol 20 mg daily x 3 more doses and then 20 mg every other day x 3 doses then stop. Discussed when she is weaned off the propranolol she can consider resuming [place] Flomax. #HLD - continue zetia #Mental health - continue Cymbalta #recurrent UTI | Urinary retention - UA without signs of infection, flomax Held and PVRs were less than 200. Patient has the supplies to continue straight cathing at home. She will continue to monitor her urinary output and consider restarting her Flomax after she is weaned off all of her other blood pressure medications. Follow-up with Dr. Doherty. #Obesity - Okay to continue wegovy, no recent dose increase. Lost 55 lbs in the last year Dispo: discharge to home today Admission HPI Per Admitting Provider Leilani is a pleasant 54-year-old woman with past medical history of pelvic floor dysfunction, urge/stress incontinence, urinary retention, history of kidney stones, hypertension, hyperlipidemia, chronic sinusitis, GERD. She presents with spells of altered mental status. Reportedly has 2-3 spells during her last inpatient stay when her blood pressure was low and responded with IV fluids. Discharged home on oral antibiotics and feel like she has just not rebounded since. Has had 3 further spells since discharge. Has a spell on friday while sitting at the table, family reports that she did not loose consciousness as she was trying to talk during the whole event, but had slurred speech and did not make sense. Fell and landed on her butt, family does not think she hit her head, but patient does not recall the fall at all. Had another episode this morning when going to an outpatient appointment, did not feel well and checked her Blood pressure and it was low and sent her to the ER. She does endorse family history of seizures and TIA. Denies any new medication changes. Recent restarted on flomax. losartan was discontinued on Friday and decreased her propranolol ~ a month ago. Uses medical marijuana topically most nights for arthritis pain, no edibles or ingestions Discharge Exam General: NAD, vitals as above, sitting on the side of bed Pulm: breathing unlabored CV: well perfused extremities: moves all extremities Discharge Plan Discharge Items Patient Disposition: Home - Self-Care Reason For Visit: AMS, HYPOTENSION Discharge Diagnosis: Hypotension Condition on Discharge: Fair Activity: Resume your previous activity Non-emergency contact: Primary Care Provider Call non-emergency contact if: you have any medication questions, your symptoms worsen, your pain is not controlled and your pain is unusual for you Follow-up/Referrals: Malvin Doherty DO [Physician] - 12/22/24 1:00 pm (follow up 1-2 weeks - urinary retention ) Deion Rivera [Primary Care Provider] - 12/10/24 9:00 am (follow up within one week with Clare Bennett at the [facility] office) Diet: Regular Addtl Attending Provider Instructions: Venkatesh, You were hopsitlized after episodes of altered mental status, thought to be from low blood pressure. After taking you off mainly BP lowering agents, you did not have any repeat spells. Your blood pressure was not dropping with position changes (orthostatic vitals were negative) and your Brain MRI did not show any strokes. Recommend that you take propranolol 20mg for the next 3 days and then every other day for 3 doses to completely ween off of this. During this time monitor for urinary retention, and straight cath as needed. After you have weaned off the propranolol, you can consider resuming the flomax daily if needed for issues with retention. While I do not think your symptom were caused by a TIA, given your family history, starting aspirin 81mg daily would not be unreasonable. Please do not cut back on your salt intake, i would not recommend drastically increasing it either, but some salt helps to maintain blood pressure. If you feel like another spells is coming on, recommend lying down, elevating your feet and drinking an electrolyte drink (gatorade, body armour, etc). Please follow up with your PCP within one week Please follow up with Dr. Doherty to discuss on going management for your urinary retention. CONTACT YOUR PRIMARY CARE PROVIDER if you experience any of the following: Shortness of breath or difficulty breathing Fevers or chills Feeling tired with normal activity or experiencing dizziness or fainting Difficulty following your treatment plan, or difficulty taking medications CALL 911 OR GO TO THE EMERGENCY DEPARTMENT if you experience any of the following: Severe abdominal pain or nausea/vomiting Severe chest pain, or chest pain that radiates (moves) to your jaw or arm Sudden, severe shortness of breath or difficulty breathing Thank you for allowing us to participate in your care. Pending Studies at Discharge: No Stand-Alone Forms: My [facility] [employer], Work/School Release, Smoking Cessation Medications and DC Order Prescriptions: New propranolol 20 mg Tablet 20 mg PO QAM Qty: 6 0RF Rx Instructions: daily x 3 days, then every other day x 3 doses Continued ezetimibe 10 mg Tablet 10 mg PO QAM duloxetine 60 mg Capsule,Delayed Release(Dr/Ec) 60 mg PO QAM Medical Marijuana 1 dose PO DAILY Wegovy 2.4 mg/0.75 mL pen injector 2.4 mg SUBCUT WK Rx Instructions: omeprazole 20 mg Capsule,Delayed Release(Dr/Ec) 20 mg PO QAM bisacodyl [Laxative (bisacodyl)] 5 mg Tablet,Delayed Release (Dr/Ec) 5 mg PO HS Held tamsulosin 0.4 mg capsule 0.4 mg PO HS Qty: 90 2RF Hold Instructions: Provider's Order Discontinued ampicillin 500 mg capsule 500 mg PO Q6H 10 Days Qty: 40 0RF Rx Instructions: Start Date 11/25/24 x10 day supply potassium chloride 10 mEq Tablet Extended Release 10 meq PO QAM hydrochlorothiazide 25 mg Tablet 25 mg PO QAM propranolol 80 mg tablet 40 mg PO QAM Discharge Orders: Discharge Order (Routine); Ordered 12/02/24 Ordered By: Sunitha Houser Admission Data Admit Date/Time: 11/30/24 14:45 Attending Provider: Norm Dunlap Admit Provider: Sanchez Mcdonough Primary Care Provider: Deion Rivera Other Providers: Sanchez Mcdonough Other Interventions: Discharge Summary Assessment (RN) Last Done: 12/02/24 11:10 Hospital Stay Data Consultations 11/30/24 13:31 ED Decision to Admit Stat Diagnostic Imagining Performed Abdomen/Pelvis CT 11/30/24 11:[address] WITH IV CONTRAST CT DOSE: 3895 HISTORY: Bilat flank pain TECHNIQUE: Multiaxial CT images of the abdomen and pelvis were performed following the IV administration of 90 cc of Optiray, A dose lowering technique was utilized adhering to the principles of ALARA. COMPARISON STUDY: 11/16/2024 FINDINGS: ABDOMEN: Liver, gallbladder, spleen, pancreas, and adrenal glands and kidneys show no evidence of acute injury. There is a stable 3 cm nodule at the left adrenal gland, previously characterized as adenoma on 09/01/2024 CT.. No evidence of abdominal aortic injury or aneurysm. There are mild atherosclerotic calcifications at the aorta. Pelvis: Uterus is absent. No adnexal mass. Urinary bladder is distended, otherwise unremarkable. No bowel inflammation or obstruction. No free fluid or free air. No enlarged adenopathy. Osseous structures: No acute fracture seen of the visualized osseous structures. IMPRESSION: No acute injury seen at the abdomen or pelvis. Otherwise as described. ACT 112: Negative or not required by law. The above report was generated using voice recognition software. It may contain grammatical, syntax or spelling errors. Electronically signed by: Robbie Brennan M.D. 11/30/2024 1:04 PM Chest X-Ray 11/30/24 11:07 XR chest 1V portable CLINICAL HISTORY: weakness COMPARISON STUDY: 09/03/2024 FINDINGS: Heart size and pulmonary vasculature are normal. No consolidation or pleural effusion. No pneumothorax. IMPRESSION: No acute findings. ACT 112: Negative or not required by law. Electronically signed by: Robbie Brennan M.D. 11/30/2024 12:[address] 11/30/24 11:07 CT SCAN OF THE BRAIN WITHOUT IV CONTRAST CLINICAL HISTORY: Confusion. COMPARISON STUDY: None. TECHNIQUE: Unenhanced axial CT scan of the brain was performed from the vertex to the skull base. A dose lowering technique was utilized adhering to the principles of ALARA. FINDINGS: Brain parenchyma: No acute intracranial hemorrhage, midline shift or mass effect is present. [place]-white matter differentiation is preserved. There are no extra- axial fluid collections. There are no findings to suggest acute dural sinus thrombosis or acute territorial infarct. Ventricles, sulci, cisterns: There is no hydrocephalus. The basal cisterns are patent. Calvarium: There are no calvarial fracture. Sinuses and mastoids: The right sphenoid sinus is largely opacified. Right maxillary sinus mucosal thickening with small air-fluid level is present. There are postoperative findings within the sinuses. Orbits: The bony orbits are grossly intact. IMPRESSION: No acute intracranial findings. ACT 112: Negative or not required by law. Electronically signed by: Alessandro Yee M.D. 11/30/2024 12:[address] 11/30/24 11:[address] WITH CONTRAST HISTORY: Back/flank pain, disoriented TECHNIQUE: Multiaxial CT images of the chest were performed following the IV administration of 90 cc of Optiray. A dose lowering technique was utilized adhering to the principles of ALARA. COMPARISON STUDY: None FINDINGS: There is no pulmonary consolidation or pleural effusion. No pneumothorax. No enlarged adenopathy. No mediastinal hematoma. No thoracic aortic injury. No pericardial effusion. No pulmonary embolism. No acute fracture seen at the visualized osseous structures. IMPRESSION: No acute findings. ACT 112: Negative or not required by law. Electronically signed by: Robbie Brennan M.D. 11/30/2024 12:[address] 11/30/24 11:10 CT thoracic spine w con, CT lumbar spine w con HISTORY: 54 years-old Female Back pain s/p fall acute mid to low back pain status post fall COMPARISON: CT chest, abdomen and pelvis of same day, CT abdomen and pelvis 11/16/2024 TECHNIQUE: Multiple axial CT images of the thoracic and lumbar spine were obtained with IV contrast. A dose lowering technique was used consistent with the principals of ALARA. FINDINGS: CT THORACIC: Mild multilevel intervertebral disc space narrowing, spondylitic spurring and facet arthrosis. No acute fracture, subluxation or endplate erosion. The imaged ribs appear intact. Small left paracentral/left lateral recess disc protrusion at T8-T9. At T11-T12 there is a 7 mm left lateral recess disc protrusion on image 419. No significant central canal or neural foraminal narrowing. Small fat filled left Bochdalek hernia. CT LUMBAR: No acute fracture, subluxation or endplate erosion. Mild multilevel spondylotic spurring with moderate facet arthrosis. Mild to moderate degeneration of the SI joints. 2.0 x 0.7 cm left foraminal/far lateral extraforaminal disc protrusion at L4-L5 causes moderate left foraminal narrowing. IMPRESSION: No acute fracture or subluxation of the thoracic or lumbar spine identified. ACT 112: Negative or not required by law. The above report was generated using voice recognition software. It may contain grammatical, syntax or spelling errors. Electronically signed by: Carlos Boyce M.D. 11/30/2024 1:[address] 11/30/24 11:10 CT thoracic spine w con, CT lumbar spine w con HISTORY: 54 years-old Female Back pain s/p fall acute mid to low back pain status post fall COMPARISON: CT chest, abdomen and pelvis of same day, CT abdomen and pelvis 11/16/2024 TECHNIQUE: Multiple axial CT images of the thoracic and lumbar spine were obtained with IV contrast. A dose lowering technique was used consistent with the principals of ALARA. FINDINGS: CT THORACIC: Mild multilevel intervertebral disc space narrowing, spondylitic spurring and facet arthrosis. No acute fracture, subluxation or endplate erosion. The imaged ribs appear intact. Small left paracentral/left lateral recess disc protrusion at T8-T9. At T11-T12 there is a 7 mm left lateral recess disc protrusion on image 419. No significant central canal or neural foraminal narrowing. Small fat filled left Bochdalek hernia. CT LUMBAR: No acute fracture, subluxation or endplate erosion. Mild multilevel spondylotic spurring with moderate facet arthrosis. Mild to moderate degeneration of the SI joints. 2.0 x 0.7 cm left foraminal/far lateral extraforaminal disc protrusion at L4-L5 causes moderate left foraminal narrowing. IMPRESSION: No acute fracture or subluxation of the thoracic or lumbar spine identified. ACT 112: Negative or not required by law. The above report was generated using voice recognition software. It may contain grammatical, syntax or spelling errors. Electronically signed by: Carlos Boyce M.D. 11/30/2024 1:05 PM Brain MRI 11/30/24 14:36 Clinical history: Stroke symptoms Technique: Multiple T1 and T2-weighted magnetic resonance images were obtained of the brain both before and after the administration of 8 cc of Gadavist intravenous gadolinium contrast Findings: There is no sign of acute or old infarction with normal-appearing diffusion weighted images. No definite focus of demyelination is seen. No mass lesion or other area of abnormal enhancement is identified. There is no intracranial hemorrhage or other fluid collection. No midline shift or other form of herniation is seen. There is no hydrocephalus. The pituitary gland appears normal. Normal flow-voids are seen within the arteries of the [id number]. The orbits appear unremarkable. There is mucosal thickening in the right maxillary and right sphenoid sinuses and there is a small left maxillary sinus mucus retention cyst. The mastoid air cells appear clear Impression: 1. Normal-appearing brain 2. Mild chronic sinusitis Electronically signed by Sd Childress 11-30-2024 6:20 PM Pending Results Patient Have Any Pending Studies at Discharge: No Discharge Instructions Given to Patient (Per Discharging Provider) Ms. Riddle, You were hopsitlized after episodes of altered mental status, thought to be from low blood pressure. After taking you off mainly BP lowering agents, you did not have any repeat spells. Your blood pressure was not dropping with position changes (orthostatic vitals were negative) and your Brain MRI did not show any strokes. Recommend that you take propranolol 20mg for the next 3 days and then every other day for 3 doses to completely ween off of this. During this time monitor for urinary retention, and straight cath as needed. After you have weaned off the propranolol, you can consider resuming the flomax daily if needed for issues with retention. While I do not think your symptom were caused by a TIA, given your family history, starting aspirin 81mg daily would not be unreasonable. Please do not cut back on your salt intake, i would not recommend drastically increasing it either, but some salt helps to maintain blood pressure. If you feel like another spells is coming on, recommend lying down, elevating your feet and drinking an electrolyte drink (gatorade, body armour, etc). Please follow up with your PCP within one week Please follow up with Dr. Doherty to discuss on going management for your urinary retention. CONTACT YOUR PRIMARY CARE PROVIDER if you experience any of the following: Shortness of breath or difficulty breathing Fevers or chills Feeling tired with normal activity or experiencing dizziness or fainting Difficulty following your treatment plan, or difficulty taking medications CALL 911 OR GO TO THE EMERGENCY DEPARTMENT if you experience any of the following: Severe abdominal pain or nausea/vomiting Severe chest pain, or chest pain that radiates (moves) to your jaw or arm Sudden, severe shortness of breath or difficulty breathing Thank you for allowing us to participate in your care. Supervising Physician Co-Signing Physician Notes The patient was not seen by me. The chart was reviewed. Case discussed with FILI Lozano. Agree with assessment and plan Total Time Total Time Spent Total Time Spent (In Minutes): Time spent day of discharge 33 minutes including direct patient care, medication reconciliation, documentation, review of labs and images, and coordination of care. Coding Level of Care Code 43563 INP/OBS DISCH >30 MIN Diagnoses Acute alteration in mental status R41.82 HTN (hypertension) I10 HLD (hyperlipidemia) E78.5
== END 2024-12-02 13:06 | disposition home or self-care (01) | DRG 316 ==
LOC: ED 10:42 → EDINP 14:45 → SUATTDRO 14:45 → 2S 16:46

== ENCOUNTER 2025-01-07 12:54 | Observation (INO) ==
[2025-01-07 13:37] LABS: Hematocrit (blood only) 44.1 % (37.0-47.0); Hemoglobin 14.6 g/dl (12.0-16.0); Immature Granulocytes # (auto) 0.03 K/uL (0.01-0.20); Immature Granulocytes % (auto) 0.3 %; Mean Corpuscular Hemoglobin 30.5 pg (25.0-34.0); Mean Corpuscular Volume 92.1 fL (80.0-100.0); Platelet Count 339 K/uL (130-400); RDW Standard Deviation 42.4 fL (36.4-46.3); Red Blood Count 4.79 M/uL (4.20-5.40); White Blood Count 8.67 K/ul (4.8-10.8)
--- NOTE | 2025-01-07 13:40 | CT Scan Report ---
CT SCAN OF THE BRAIN WITHOUT IV CONTRAST CLINICAL HISTORY: Change in mental status. Slurred speech. COMPARISON STUDY: CT and MRI of the brain dated 11/30/2024. TECHNIQUE: Unenhanced CT scan of the brain is performed from the vertex to the skull base. Images are reviewed in the axial, sagittal, and coronal planes. A dose lowering technique was utilized adherin g to the principles of ALARA. CT DOSE: 547.75 mGy.cm FINDINGS: Brain parenchyma: The brain parenchyma is normal in appearance. There is no hemorrhage, mass effect, or evidence of acute territorial ischemia by CT criteria. [place]-white matter differentiation is preser azul. No extra-axial fluid collection is seen. Ventricles, sulci, cisterns: Normal in configuration. Intracranial vasculature: There is atherosclerotic calcification of the cavernous carotid and vertebr al arteries. Calvarium: Unremarkable. Sinuses and mastoids: There is evidence of previous paranasal sinus surgery. There is subtotal opaci fication of the right sphenoid sinus. Mild mucosal thickening is seen within the right maxillary sinu s, ethmoid resection cavity, in the right frontal sinus. The mastoid air cells are well pneumatized. Orbits: The bony orbits are grossly intact. IMPRESSION: No acute intracranial abnormality. ACT 112: Negative or not required by law. Electronically signed by: Obinna Rodriguez M.D. 01/07/2025 1:38 PM
[2025-01-07 13:55] LABS: Pregnancy Test, Serum Negative (Negative)
[2025-01-07 13:57] LABS: Alanine Aminotransferase 31 U/L (7-52); Albumin Globulin Ratio 1.5 (0.9-2); Albumin Level 4.4 gm/dl (3.4-5.0); Alkaline Phosphatase 88 U/L (34-104); Anion Gap 8 (3-11); Bilirubin,Total 0.8 mg/dl (0.2-1.0); Blood Urea Nitrogen 15 mg/dl (6-23); Calcium 9.7 mg/dl (8.6-10.3); Carbon Dioxide 30 mmol/L (21-32); Chloride 103 mmol/L (98-107); Creatinine Clr Calc Pharmacy 106.0 ml/min; Globulin 2.9 gm/dl (2.5-4.0); Glucose 108 mg/dl (70-99(Fasting)); Lipase 29 U/L (11-82); Potassium 3.8 mmol/L (3.5-5.1); Sodium 141 mmol/L (136-145); Total Protein 7.3 gm/dl (6.0-8.3)
--- NOTE | 2025-01-07 13:58 | XRay Report ---
XR chest 1V portable CLINICAL HISTORY: Chest pain, nonspecific COMPARISON STUDY: 11/30/2024 FINDINGS: Heart size and pulmonary vasculature are normal. No consolidation or pleural effusion. No p neumothorax. IMPRESSION: No acute findings. ACT 112: Negative or not required by law. Electronically signed by: Robbie Brennan M.D. 01/07/2025 1:56 PM
[2025-01-07 14:03] LABS: INR 0.9 (0.9-1.1); Partial Thromboplastin Time 23 Seconds (21-31); Prothrombin Time 10.0 Seconds (9.0-12.0)
[2025-01-07 14:11] LABS: Appearance Urine Clear (Clear); Glucose Urine UA Negative (Negative)
[2025-01-07 14:13] LABS: Thyroid Stimulating Hormone 0.423 uIu/ml (0.300-4.500)
[2025-01-07] MEDS: FAMOTIDINE 20MG IV PUSH 20 MG/5 ML SYR IV STA (14:37)
[2025-01-07] MEDS: PROMETHAZINE 25 MG/51 ML BAG IV PRN (14:37)
[2025-01-07 14:48] LABS: Amphetamines+Metham, Urine Neg (Neg); MDMA (Ecstacy), Urine Neg (Neg); Marijuana, Urine Neg (Neg)
--- NOTE | 2025-01-07 14:51 | Emergency Department Note ---
ED Provider Note History of Present Illness Chief Complaint: Cardiac Assessment Stated Complaint: HYPERTENSION, DIZZY, HEART BURN Time Seen by Provider: 01/07/25 13:03 54-year-old female who presents to the emergency department with family (who provides most of the history of today's visit) for evaluation of confusion, chest pain and elevated blood pressure. The patient reports that she developed lightheadedness yesterday, and felt like she was going to pass out. The patient also reports heartburn and is not relieved with Prilosec that she took yesterday and today. The daughter reports that the patient was admitted a month ago for confusion. No definitive findings were noted on that visit. The patient denies any history of cardiac events. The patient currently rates her discomfort a 4 out of 10. Home Medications Medication Instructions Recorded Confirmed Type Medical Marijuana 1 dose PO DAILY 09/10/24 01/07/25 History duloxetine 60 mg capsule,delayed 60 mg PO QAM 09/10/24 01/07/25 History release ezetimibe 10 mg tablet 10 mg PO QAM 09/10/24 01/07/25 History omeprazole 20 mg capsule,delayed 20 mg PO QAM 11/30/24 01/07/25 History release losartan 100 mg tablet 100 mg PO DAILY 01/07/25 01/07/25 History metoprolol succinate 25 mg 25 mg PO DAILY 01/07/25 01/07/25 History tablet,extended release 24 hr trazodone 100 mg tablet 100 mg PO HS 01/07/25 01/07/25 History Allergies Allergy/AdvReac Type Severity Reaction Status Date / Time kiwi Allergy Severe Anaphylaxis Unverified 11/30/24 13:45 morphine Allergy Intermediate felt like Verified 11/30/24 13:45 bugs crawling on skin, severe Sulfa (Sulfonamide AdvReac Intermediate Headache Verified 11/30/24 13:45 Antibiotics) Past Med/Surg History Problem List (Updated 01/07/25 @ 18:17 by Flaco Kc) GERD (gastroesophageal reflux disease) (Acute) Chest pain (Acute) Acute alteration in mental status (Acute) Chest pain Uncontrolled hypertension Syncope (Acute) Acute alteration in mental status (Acute) Acute urinary retention (Acute) Hernia Pelvic floor dysfunction (Chronic) Incontinence (Chronic) Medical History Chronic sinusitis History of anesthesia reaction BP went really high, needed a nitro patch at one point for it HLD (hyperlipidemia) HTN (hypertension) BP 118/78 at 01/2024 cardio appt History of kidney stones GERD (gastroesophageal reflux disease) Fibromyalgia History of anesthesia reaction did not move bowels for 10 days after last bladder sx, was hospitalized at [facility] for 4 days due to this, July 2020 Surgical History History of esophagogastroduodenoscopy (EGD) History of colonoscopy History of cholecystectomy "might" have had removed History of appendectomy Hx of vascular surgery to legs vein stripping [place] teeth extracted Hx of lithotripsy History of partial hysterectomy Hx of section x2 Hx of hernia repair Hx of sinus surgery History of bladder surgery x2, first one was done through abdomen Family History Brother Heart problem Social History Smoking Status: Never smoker Second Hand Exposure: No; Do You Dip or Chew Tobacco: No; Hx Alcohol Use: Yes Alcohol type: wine Hx Substance Use: No Preferred Language: [place] Communication Ability: Effective Visual Impairment: No Limitations Dyeing Machine Feeder Required: No Beliefs That Will Affect Care: None Current Living Situation: Spouse Other Information That Helps Us Care for You: No Feels Safe at Home: Yes Safety Concerns: Feels Safe At This Time Assistive Devices: Glasses Assistive Devices Comment: reading glasses Physical Exam Vital Signs Vital Signs - 24 hr 01/07/25 12:57 01/07/25 13:08 01/07/25 13:13 Temperature 36.4 C L Temperature Source Skin Pulse Rate 92 H Pulse Rate [Apical] 87 Respiratory Rate 20 20 Respiratory Effort / Characteristics Non-Labored Spontaneous Non-Labored Spontaneous Respiratory Depth Normal Normal Respiratory Pattern Regular Regular Blood Pressure 151/91 H Blood Pressure [Right Arm] 153/101 H Blood Pressure Mean 111 Blood Pressure Mean [Right Arm] 118 Pulse Oximetry 99 98 97 Oxygen Delivery Method Room Air Room Air Room Air Sepsis Recent Fever Within 48 Hours No Sepsis New/Unexplained Change in Mental Status N/A Sepsis Action Taken by Nursing No Action Required 01/07/25 13:15 01/07/25 15:00 Temperature Temperature Source Pulse Rate 82 Pulse Rate [Apical] 90 Respiratory Rate 18 Respiratory Effort / Characteristics Non-Labored Spontaneous Respiratory Depth Normal Respiratory Pattern Blood Pressure Blood Pressure [Right Arm] 132/89 Blood Pressure Mean Blood Pressure Mean [Right Arm] 103 Pulse Oximetry 98 Oxygen Delivery Method Room Air Sepsis Recent Fever Within 48 Hours Sepsis New/Unexplained Change in Mental Status Sepsis Action Taken by Nursing CONSTITUTIONAL: Healthy and well nourished. Alert and oriented X 3. GCS 15. HEENT: Normocephalic, atraumatic. Pupils equal, round and reactive. No scleral icterus or conjunctival injection/pallor. NECK: Full active range of motion without discomfort. RESPIRATORY: Clear to auscultation bilaterally with no wheezing, crackles, rhonchi or stridor. CARDIOVASCULAR: Regular rate and rhythm with no murmurs, rubs or gallops. GASTROINTESTINAL: Bowel sounds present in all quadrants. Abdomen is soft and nontender to palpation. MUSCULOSKELETAL: No tenderness to palpation over the anterior chest wall. INTEGUMENTARY: No rash or other significant dermatologic conditions noted. HEMATOLOGIC: No ecchymosis or petechiae. PSYCHIATRIC: Flat affect with labile mood. NEUROLOGIC: No focal neurologic deficits noted. Course Course Patient history and physical exam were performed. Nursing notes were reviewed. I did review prior medical records, showing the patient was admitted 1 month ago for altered mental status. Patient did have extensive workup, including CT and MRI imaging that was normal. IV access was established, and labs were ordered and drawn. The patient refused any additional analgesics or antiemetics. An EGD was performed and was normal. The patient was placed on telemetry monitor while in the emergency department. Portable chest x-ray was normal. Noncontrast CT imaging of the head also did not show any concerning findings. Review of labs shows a normal troponin, CBC, CMP and urinalysis. Urine drug screen was pending. Upon reevaluation, the daughters report that she still is very agitated, but thinks that her slurred speech has improved. The patient reports persistent chest pain. At this point, I did recommend hospitalist evaluation, and both the family and patient was in agreement. The patient was administered IV Pepcid. She refused any antiemetics at that time, but the daughter requested IV Phenergan; as needed order for Phenergan was entered into the system. The case was then discussed with Dr. Bowles, ED attending physician, who agrees with workup and hospitalist evaluation. The case was then discussed with the [facility] hospitalist service, who agreed to evaluate the patient. Please see other dictation for further treatment and final disposition. Administered Medications Discontinued Medications Famotidine (Pepcid 20mg Iv Push) 20 mg in 5 mls @ 2.5 mls/min IV NOW STA Stop: 01/07/25 14:30 Last Admin: 01/07/25 14:37 Dose: 2.5 mls/min Documented By: RUEL Promethazine HCl (Phenergan) 25 mg in 51 mls @ 204 mls/hr IV Q6H PRN PRN Reason: Nausea And Vomiting Stop: 02/06/25 14:28 Last Infusion: 01/07/25 14:53 Dose: Infused Documented By: Admin: 01/07/25 14:37 Dose: 204 mls/hr Documented By: RUEL Influenza Virus Vacc Triv Types A&B (Influenza Vacc [id number](6m+)/Pf (Iiv3) 0.5ml Syr) 0.5 ml IM .ONCE ONE Stop: 01/07/25 18:01 Last Admin: 01/07/25 17:24 Dose: Not Given Documented By: Medical Decision Making Medical Records Attestation: I reviewed the patient's medical records. Home Medications was personally reviewed by me Laboratory Data Attestation: I reviewed the patient's lab results. 01/07/25 13:13 01/07/25 13:13 Lab Results 01/07/25 01/07/25 Range/Units 13:13 13:22 WBC 8.67 (4.8-10.8) K/ul RBC 4.79 (4.20-5.40) M/uL Hgb 14.6 (12.0-16.0) g/dl Hct 44.1 (37.0-47.0) % MCV 92.1 (80.0-100.0) fL MCH 30.5 (25.0-34.0) pg MCHC 33.1 (32.0-36.0) g/dL RDW Std Deviation 42.4 (36.4-46.3) fL RDW Coeff of Nancy 12.6 (11.5-14.5) % Plt Count 339 (130-400) K/uL MPV 8.6 L (9.4-12.4) fL Immature Gran % (Auto) 0.3 % Neut % (Auto) 67.6 % Lymph % (Auto) 23.5 % [place] % (Auto) 6.8 % Eos % (Auto) 1.5 % Baso % (Auto) 0.3 % Neut # (Auto) 5.85 (1.40-6.50) K/uL Lymph # (Auto) 2.04 (1.20-3.40) K/uL [place] # (Auto) 0.59 (0.11-0.59) K/uL Eos # (Auto) 0.13 (0.00-0.50) K/uL Baso # (Auto) 0.03 (0.00-0.20) K/uL Immature Gran # (Auto) 0.03 (0.01-0.20) K/uL PT 10.0 (9.0-12.0) Seconds INR 0.9 (0.9-1.1) APTT 23 (21-31) Seconds PTT Ratio 0.8 D-Dimer 210 (0-500) ug/L FEU Sodium 141 (136-145) mmol/L Potassium 3.8 (3.5-5.1) mmol/L Chloride 103 (98-107) mmol/L Carbon Dioxide 30 (21-32) mmol/L Anion Gap 8 (3-11) BUN 15 (6-23) mg/dl Creatinine 0.65 (0.6-1.2) mg/dl Est Cr Clr Drug Dosing 106.0 ml/min eGFR 104.56 BUN/Creatinine Ratio 23.1 H (10-20) Glucose 108 H (70-99(Fasting)) mg/dl Calcium 9.7 (8.6-10.3) mg/dl Total Bilirubin 0.8 (0.2-1.0) mg/dl AST 21 (13-39) U/L ALT 31 (7-52) U/L Alkaline Phosphatase 88 (34-104) U/L Troponin I High Sens < 2.3 (0-14) pg/ml Total Protein 7.3 (6.0-8.3) gm/dl Albumin 4.4 (3.4-5.0) gm/dl Globulin 2.9 (2.5-4.0) gm/dl Albumin/Globulin Ratio 1.5 (0.9-2) Lipase 29 (11-82) U/L TSH 0.423 (0.300-4.500) uIu/ml HCG, Qual Negative (Negative) Urine Color Yellow Urine Appearance Clear (Clear) Urine pH 7.0 (4.5-7.5) Ur Specific [place] 1.007 (1.000-1.030) Urine Protein Negative (Negative) Urine Glucose (UA) Negative (Negative) Urine Ketones Negative (Negative) Urine Blood Negative (Negative) Urine Nitrite Negative (Negative) Urine Bilirubin Negative (Negative) Urine Urobilinogen Negative (Negative) Ur Leukocyte Esterase Negative (Negative) Urine Comment Urine Opiates Screen Neg (Neg) Ur Methadone, Qual Neg (Neg) Urine Fentanyl Screen Neg (Neg) Urine Barbiturates Neg (Neg) Ur Phencyclidine (PCP) Neg (Neg) U Amphetamin/Meth Scrn Neg (Neg) MDMA (Ecstasy) Screen Neg (Neg) U Benzodiazepines Scrn Neg (Neg) Ur Cocaine Metabolite Neg (Neg) U Marijuana (THC) Screen Neg (Neg) Imaging Data Attestation: I personally reviewed and interpreted this imaging study as follows: My Impression: My interpretation of a portable chest x-ray does not show evidence for pneumonia, pulmonary edema, pneumothorax or cardiomegaly. My interpretation of a noncontrast CT scan of the head does not show evidence for intracranial bleed, midline shift or mass effect. Radiologist reports were otherwise reviewed with concurrence. Radiologist's Impression: Chest X-Ray 01/07/25 13:13 XR chest 1V portable CLINICAL HISTORY: Chest pain, nonspecific COMPARISON STUDY: 11/30/2024 FINDINGS: Heart size and pulmonary vasculature are normal. No consolidation or pleural effusion. No pneumothorax. IMPRESSION: No acute findings. ACT 112: Negative or not required by law. Electronically signed by: Robbie Brennan M.D. 01/07/2025 1:[address] 01/07/25 13:13 CT SCAN OF THE BRAIN WITHOUT IV CONTRAST CLINICAL HISTORY: Change in mental status. Slurred speech. COMPARISON STUDY: CT and MRI of the brain dated 11/30/2024. TECHNIQUE: Unenhanced CT scan of the brain is performed from the vertex to the skull base. Images are reviewed in the axial, sagittal, and coronal planes. A dose lowering technique was utilized adhering to the principles of ALARA. CT DOSE: 547.75 mGy.cm FINDINGS: Brain parenchyma: The brain parenchyma is normal in appearance. There is no hemorrhage, mass effect, or evidence of acute territorial ischemia by CT criteria. [place]-white matter differentiation is preserved. No extra-axial fluid collection is seen. Ventricles, sulci, cisterns: Normal in configuration. Intracranial vasculature: There is atherosclerotic calcification of the cavernous carotid and vertebral arteries. Calvarium: Unremarkable. Sinuses and mastoids: There is evidence of previous paranasal sinus surgery. There is subtotal opacification of the right sphenoid sinus. Mild mucosal thickening is seen within the right maxillary sinus, ethmoid resection cavity, in the right frontal sinus. The mastoid air cells are well pneumatized. Orbits: The bony orbits are grossly intact. IMPRESSION: No acute intracranial abnormality. ACT 112: Negative or not required by law. Electronically signed by: Obinna Rodriguez M.D. 01/07/2025 1:38 PM ECG Data Attestation: I personally reviewed and interpreted this ECG as follows: Indication: + altered mental status and + chest pain Rate (beats per minute): 81 Rhythm: + normal sinus ECG Intervals/blocks: + Normal QRS, + Normal QT and + Normal ND ECG [place]: + Normal ECG ST segments: + Normal ST segments Comparison ECG Date: from (11/30/2024) Change: no significant change MDM Narrative Cardiac monitoring: An order was placed for continuous cardiac monitoring. The monitor shows a rate of 81 bpm with a normal sinus rhythm. night monitor history was reviewed throughout the evaluation, and no dysrhythmias were noted. See ED Course section for further details of today's visit. The patient presents with multiple symptoms, including altered mental status per the daughters, chest pain and upset stomach. It is noted that the patient was admitted to our facility approximately 1 month ago with an extensive workup that was unremarkable. Today's workup again does not show any concerning findings, however given her persistent chest pain and altered mental status, I do feel that observation is warranted. The case was discussed with the [facility] hospitalist service, who agrees to evaluate the patient. Please see their dictation for further treatment and final disposition. Impression Acute alteration in mental status, Chest pain, GERD (gastroesophageal reflux disease) Discharge Plan Visit Data Chief Complaint: Cardiac Assessment Stated Complaint: HYPERTENSION, DIZZY, HEART BURN ED Provider: Abdirizak Bowles ED Midlevel Provider: Flaco Kc Discharge Problem: Acute alteration in mental status, Chest pain, GERD (gastroesophageal reflux disease) Patient Disposition: Admitted As Inpatient Condition: Fair Discharge Instructions Interventions: ED Discharge Assessment Last Done: 01/07/25 16:46 ED DC CONDITION Conditon at Discharge Condition at Discharge: Fair
--- NOTE | 2025-01-07 16:07 | History & Physical Report ---
Date of Service January 07, 2025 Assessment & Plan (1) Acute alteration in mental status: (2) Chest pain: (3) Uncontrolled hypertension: (4) GERD (gastroesophageal reflux disease): Plan 54 yo F who presents with episodic altered mental status and chest pain. Hospitalized last month with similar presentation with unremarkable work up. #AMS - Etiology uncertain, DDx serotonin syndrome?? Combo of trazodone + duloxetine in setting of 55 lb weight loss on wegovy - Obs to tele - Regular diet - VS per unit protocol - No obvious source of infection - Urine tox screen is pending - Reported "twitching" and "eye lid fluttering" per family, consult neurology, appreciate assistance - No plan for repeat MRI at this time, no focal neuro deficits present on exam #HTN, uncontrolled - BP acceptable at present 132/89 - Continue Losartan and Metoprolol Succ #Chest pain - Low index of suspicion for cardiac source - Initial HS trop <2.3, repeat pending - EKG NSR w/o acute changes - D dimer negative - Monitor on TELE, EKG PRN chest pain - Suspect GI source, will increase PPI dose from 20mg to 40mg #Depression - Continue Trazodone #Fibromyalgia - Continue duloxetine #HLD - Continue zetia, cannot tolerate statins - Takes CoQ-10 at home OTC VTE ppx with Lovenox 40mg sq daily Dispo: med tele Case discussed with attending, Dr. Padgett, who will also see and evaluate this patient. Further orders will be implemented as clinically warranted. History of Present Illness Chief Complaint: Altered mental status, chest pain Primary Care Provider: Deion Duke is a 54 yo F with a pmhx of HTN, fibromyalgia, GERD, chronic sinusitis, HLD, and depression who presents to the ER accompanied by her and two daughters due to confusion/AMS and chest pain. Reportedly, the patient was not feeling well earlier, was confused, and dizzy and indigestion. She went and sat for a while at school and the family then decided to transport her to the ER for evaluation. Patient reports that she takes Losartan and Metoprolol for her BP and that it has been running high the last week. She has had headaches intermittently. One daughter was indicating that her confusion today is not her baseline. She was hospitalized last month and discharged on 12/02 with similar symptoms. Per the dc summary last admission pt was having "spells" of confusion. Her work up during that stay was unremarkable with normal CT head and MRI brain. She did not have a UTI during that admission. She does have a h/o urinary retention and has had to intermittently straight cath at times. She has had no urinary symptoms leading into today's presentation, she denies dysuria, hematuria. She denies abd pain, n/v/d, f/c. Her chest pain earlier was described as midsternal and felt like a pressure, but has now migrated to the base of her neck and feels more burning. Her initial w/u in the ER today is essentially unremarkable. Her CTH is without acute abnormalities. She is afebrile and her BP is stable at 132/89. Her chem profile is unremarkable. TSH WNL, d-dimer 210, and HS trop was <2.3. EKG nonacute. UA negative and her toxicology panel is pending but she denies utilizing any recreational drugs. She does have an rx for medical marijuana. She was medicated with famotidine and promethazine, her chest discomfort has improved. She is alert and oriented at present. Hospital medical team has been asked to evaluation for admission. Allergies Allergy/AdvReac Type Severity Reaction Status Date / Time kiwi Allergy Severe Anaphylaxis Unverified 11/30/24 13:45 morphine Allergy Intermediate felt like Verified 11/30/24 13:45 bugs crawling on skin, severe Sulfa (Sulfonamide AdvReac Intermediate Headache Verified 11/30/24 13:45 Antibiotics) Home Medications Medication Instructions Recorded Confirmed Type Medical Marijuana 1 dose PO DAILY 09/10/24 01/07/25 History duloxetine 60 mg capsule,delayed 60 mg PO QAM 09/10/24 01/07/25 History release ezetimibe 10 mg tablet 10 mg PO QAM 09/10/24 01/07/25 History omeprazole 20 mg capsule,delayed 20 mg PO QAM 11/30/24 01/07/25 History release losartan 100 mg tablet 100 mg PO DAILY 01/07/25 01/07/25 History metoprolol succinate 25 mg 25 mg PO DAILY 01/07/25 01/07/25 History tablet,extended release 24 hr trazodone 100 mg tablet 100 mg PO HS 01/07/25 01/07/25 History zonisamide 100 mg capsule 100 mg PO HS #30 caps 01/08/25 Rx Past Med/Surg History Problem List (Updated 01/08/25 @ 10:05 by Eric Aj MD) Stroke-like episode GERD (gastroesophageal reflux disease) (Acute) Chest pain (Acute) Acute alteration in mental status (Acute) Chest pain Uncontrolled hypertension Syncope (Acute) Acute alteration in mental status (Acute) Acute urinary retention (Acute) Hernia Pelvic floor dysfunction (Chronic) Incontinence (Chronic) Medical History Chronic sinusitis History of anesthesia reaction BP went really high, needed a nitro patch at one point for it HLD (hyperlipidemia) HTN (hypertension) BP 118/78 at 01/2024 cardio appt History of kidney stones GERD (gastroesophageal reflux disease) Fibromyalgia History of anesthesia reaction did not move bowels for 10 days after last bladder sx, was hospitalized at [facility] for 4 days due to this, July 2020 Surgical History History of esophagogastroduodenoscopy (EGD) History of colonoscopy History of cholecystectomy "might" have had removed History of appendectomy Hx of vascular surgery to legs vein stripping [place] teeth extracted Hx of lithotripsy History of partial hysterectomy Hx of section x2 Hx of hernia repair Hx of sinus surgery History of bladder surgery x2, first one was done through abdomen Family History Brother Heart problem Social History Smoking Status: Never smoker Second Hand Exposure: No; Do You Dip or Chew Tobacco: No; Hx Alcohol Use: Yes Alcohol type: wine Hx Substance Use: No Preferred Language: Yi Communication Ability: Effective Visual Impairment: No Limitations Aquarium Tank Attendant Required: No Beliefs That Will Affect Care: None Current Living Situation: Spouse Feels Safe at Home: Yes Assistive Devices: Glasses Review of Systems 2 Review of Systems: All systems reviewed and are unremarkable except as noted in HPI and below. Denies fever, chills, fatigue, nasal congestion, sore throat, cough, chest pain, shortness of breath, palpitations, orthopnea, PND, abdominal pain, n/v/d, constipation, dysuria, hematuria, frequency, back pain, joint pain or swelling, easy bruising or bleeding, skin lesions or rashes. Physical Exam 2 Physical Exam: GENERAL: 54 yo obese middle aged WF. No distress. LUNGS: Clear to auscultation bilaterally w/o w/r/r CARDIOVASCULAR: Regular rate and rhythm. NEUROLOGIC: A&O x3. No focal neurological deficits. CN II-XII grossly intact. PSYCHIATRIC: Cooperative. Appropriate mood and affect. SKIN: Warm, dry, intact. No rashes or lesions. Results & Data Results & Data Vital Signs (Past 12 Hours) Vital Signs Temp Pulse Pulse Resp BP BP Pulse Ox 01/07/25 15:00 90 18 132/89 98 01/07/25 13:15 82 01/07/25 13:13 97 01/07/25 13:08 87 20 153/101 H 98 01/07/25 12:57 36.4 C L 92 H 20 151/91 H 99 O2 Del Method 01/07/25 15:00 Room Air 01/07/25 13:15 01/07/25 13:13 Room Air 01/07/25 13:08 Room Air 01/07/25 12:57 Room Air Laboratory Results 01/07/25 13:13 01/07/25 13:13 Diagnostic Findings Chest X-Ray 01/07/25 13:13 XR chest 1V portable CLINICAL HISTORY: Chest pain, nonspecific COMPARISON STUDY: 11/30/2024 FINDINGS: Heart size and pulmonary vasculature are normal. No consolidation or pleural effusion. No pneumothorax. IMPRESSION: No acute findings. ACT 112: Negative or not required by law. Electronically signed by: Robbie Brennan M.D. 01/07/2025 1:[address] 01/07/25 13:13 CT SCAN OF THE BRAIN WITHOUT IV CONTRAST CLINICAL HISTORY: Change in mental status. Slurred speech. COMPARISON STUDY: CT and MRI of the brain dated 11/30/2024. TECHNIQUE: Unenhanced CT scan of the brain is performed from the vertex to the skull base. Images are reviewed in the axial, sagittal, and coronal planes. A dose lowering technique was utilized adhering to the principles of ALARA. CT DOSE: 547.75 mGy.cm FINDINGS: Brain parenchyma: The brain parenchyma is normal in appearance. There is no hemorrhage, mass effect, or evidence of acute territorial ischemia by CT criteria. [place]-white matter differentiation is preserved. No extra-axial fluid collection is seen. Ventricles, sulci, cisterns: Normal in configuration. Intracranial vasculature: There is atherosclerotic calcification of the cavernous carotid and vertebral arteries. Calvarium: Unremarkable. Sinuses and mastoids: There is evidence of previous paranasal sinus surgery. There is subtotal opacification of the right sphenoid sinus. Mild mucosal thickening is seen within the right maxillary sinus, ethmoid resection cavity, in the right frontal sinus. The mastoid air cells are well pneumatized. Orbits: The bony orbits are grossly intact. IMPRESSION: No acute intracranial abnormality. ACT 112: Negative or not required by law. Electronically signed by: Obinna Rodriguez M.D. 01/07/2025 1:38 PM ECG Additional Comments: EKG - NSR Code Status & VTE Plan VTE Prophylaxis Plan VTE Prophylaxis will be ordered: Yes Supervising Physician Co-Signing Physician Notes I personally saw and examined the patient. I independently reviewed the labs, EKG, imaging, problem list, medication list, past medical history and family history. I verified all bradley points and agree with Gayathri Beck PA-C with the following exceptions and/or additions: 54 year old female presents to the ER presents to the ER with repeat episodes with multitude of symptoms mentioned above. Currently feels restless. O/E HS RRR, no murmurs, Chest CTAB, Abdo SNT, no pronator drift, normal power and sensation in all 4 extremities, CN 2-> 12 intact A/P Altered mental state - Brain MRI last admission normal, agree with neurology evaluate patient further Chest pain - serial troponins negative with ongoing pain, do not suspect ACS PG Care Time/CCT Total # of Minutes Spent Total Time Spent with Patient: Total time spent is greater than 50% in coordination of care (as documented) at patient's floor/unit and/or counseling patient: 78 minutes Coding Level of Care Code 72035 INT INP/OBS CARE 3/75MIN Diagnoses Acute alteration in mental status R41.82 Chest pain R07.9 Uncontrolled hypertension I10 GERD (gastroesophageal reflux disease) K21.9
[2025-01-07] MEDS ORDERED: ALUMINUM/MAGNESIUM SUSP 30 ML UDC PO PRN (17:02)
[2025-01-07] MEDS ORDERED: MELATONIN 3 MG TAB PO PRN (17:02)
[2025-01-07] MEDS ORDERED: MAGNESIUM HYDROXIDE SUSP 30 ML UDC PO PRN (17:02)
[2025-01-07] MEDS: INFLUENZA VACC TS2025-26(6m+)/PF (IIV3) 0.5mL Syr IM ONE (17:24)
[2025-01-08 06:29] LABS: Hematocrit (blood only) 40.4 % (37.0-47.0); Hemoglobin 13.3 g/dl (12.0-16.0); Immature Granulocytes # (auto) 0.02 K/uL (0.01-0.20); Immature Granulocytes % (auto) 0.3 %; Mean Corpuscular Hemoglobin 30.4 pg (25.0-34.0); Mean Corpuscular Volume 92.4 fL (80.0-100.0); Platelet Count 282 K/uL (130-400); RDW Standard Deviation 42.9 fL (36.4-46.3); Red Blood Count 4.37 M/uL (4.20-5.40); White Blood Count 6.32 K/ul (4.8-10.8)
[2025-01-08 06:58] LABS: Anion Gap 7.0 (3-11); Blood Urea Nitrogen 16.0 mg/dl (6-23); Calcium 9.3 mg/dl (8.6-10.3); Carbon Dioxide 29.0 mmol/L (21-32); Chloride 107.0 mmol/L (98-107); Creatinine Clr Calc Pharmacy 91.9 ml/min; Glucose 97.0 mg/dl (70-99(Fasting)); Potassium 4.2 mmol/L (3.5-5.1); Sodium 143.0 mmol/L (136-145)
[2025-01-08] MEDS: LOSARTAN POTASSIUM 50 MG TAB PO SCH (07:47)
[2025-01-08] MEDS: ENOXAPARIN INJ 40 MG/0.4 ML SYR SQ SCH (07:47)
[2025-01-08] MEDS: EZETIMIBE 10 MG TAB PO SCH (07:47)
[2025-01-08] MEDS: METOPROLOL SUCC 25MG EXT REL TAB PO SCH (07:47)
[2025-01-08] MEDS: ACETAMINOPHEN 325 MG TAB PO PRN (07:50)
--- NOTE | 2025-01-08 07:53 | Neurology Consultation ---
Date of Consultation January 08, 2025 Assessment & Plan (1) Stroke-like episode: 1. Acute recurrent transient stroke-like episode, of undetermined etiology. Differential includes hypertensive encephalopathy [although reported BPs around the time of the last 2 episodes not significantly elevated (>200-220/100-120)], TIAs, migraine-related stroke-like episodes, and recurrent partial seizures/post-ictal state. Doubt serotonin syndrome based on clinical description. Current neurological exam is normal/unremarkable/non-focal. Current non-contrast CT(brain) didn't reveal any evident acute abnormalities. Recent MRI(brain) from one month ago was also unremarkable. 2. Hypertension. 3. Obesity, with significant weight loss (approx. 55 pounds) over the past year on Wegovy Rx (recently discontinued secondary to insurance coverage issues). 4. Hyperlipidemia, with prior significant statin intolerance. 5. GERD. 6. Fibromyalgia. 7. Sinus disease. 8. Prior ear-syncopal episodes, related to transient hypotension. 9. Mild bilateral high frequency hearing loss, per recent audiogram (few months ago). 10. Remote history of kidney stones (remote, age 30, with ). Plan 1. Recommend additional diagnostic testing: -MRI(brain)/stroke protocol with head/neck MRA studies (she has ever had prior vascular imaging studies) -Routine/sleep-deprived EEG study, plus outpatient ambulatory 24-48 hour EEG study -Check lipid profile and A1c 2. Additional Rx changes: -Continue low-dose aspirin Rx 81mg daily (patient has been taking as an outpatient) -Consider future PCSK9 inhibitor Rx, more so if notable modest cerebrovascular disease -Start Zonisamide 100mg PO qHS, regarding future episode/spell prophylaxis -Continue home BP monitoring, with short-term BP goal <160/90 3. Follow-up: -Patient can follow-up via outpatient [facility] in 1 month for clinical re-evaluation (will arrange this). -Patient can contact my office in interim if any additional questions or problems (phone numbers provided). -Could also follow-up with local [facility] or [place] outpatient Neurologist, but may be difficult to arrange. Briefly discussed patient's case/plan of care as highlighted above with hospitalist (Sarah Sexton PA-C) at the completion of the TeleNeurology consult. Thank you for the TeleNeurology consult. If there are further questions, issues, or concerns, please re-contact me. Total Time Spent: 150 minutes [90 minutes audio/video time; 60 minutes reviewing prior brain imaging studies, prior/multiple patient EHR records/diagnostic studies, coordinating care with her provider, and documentation] Eric Aj MD Addendum: Patient has reported prior sulfa allergy (headaches, eye issues; no reported rash), therefore won't pursue Zonisamide Rx, and will plan to address future Lamictal Rx with her. Telehealth Consultation Telehealth Information Telehealth Information: I performed this visit using a real-time telehealth connection between my location and the patients originating location ([facility]). After connecting through interactive tele-video, patient was identified by name and date of and/or wristband check.Patient (or authorized healthcare franchise sales representative) was informed that this was a telemedicine visit and it was being conducted confidentially over secure lines. My office door was closed and no one else was present in the room with me.Patient (or authorized healthcare franchise sales representative) provided consent to proceed with the visit, expressed an understanding of privacy and security of the telemedicine visit, and gave permission to have a hospital franchise sales representative in the room in order to assist with the visit and to conduct portions of the visit, as needed. I informed the patient (or authorized healthcare franchise sales representative) that I reviewed their record and presented the opportunity for them to ask any questions regarding the visit today. The patient agreed to participate. History of Present Illness Reason for Consultation: Recent recurrent transient stroke-like episode/spell Requesting Physician: Gayathri Beck PA-C Attending Physician: Norm Dunlap MD History of Present Illness 54 year-old right-handed woman, who experienced an acute stroke-like episode yesterday morning (approx. 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 There were no reported specific precipitating factors. She initially noted gait imbalance/disequilibrium and a near-syncopal feeling. She later noted some word finding difficulty/expressive aphasia and questionable mild confusion. There was also questionable mild dysarthria. There was also reported GI upset/nausea/heartburn. She also reported blurred vision and tunnel vision (no reported positive visual aura symptoms or diplopia). Lastly, she reported paroxysmal bilateral (R>L) hand tremor, which could have been anxiety related. There was also transient occasional involuntary left leg twitches (never had these before). Her went to the school, and promptly brought her to the ED for further evaluation/management. ED BPs ranged from 145-170/90-100. Non-contrast CT(brain) was negative for any acute abnormalities/ICH. No CTA studies were performed. Her symptoms co mpletely resolved over the next several hours. She did report modest fatigue with/after the episode. There was no reported headache/neck pain at any point during the episode. Of note, she has hypertension, and did report higher BPs this week per home BP monitoring, with diastolic BPs occasionally up to approx. 110. There were occasional posterior headaches reported. Of note, she was hospitalized at [facility] in early November 2024 (11/30/24-12/02/24) for another stroke-like episode, felt to be possibly hypertensive urgency related. This episode lasted a few hours. MRI(brain) then was negative for any acute ischemic stroke findings. She does report occasional recurrent spells/episodes, beginning after bladder Botox Rx and subsequent UTI in October 2024. The first 3 spells/episodes appear to represent recurrent near-syncopal episodes, related to low BPs. She has a remote paroxysmal migraine headache history. She hasn't had a reported migraine-type headache in several years (? last one 20 years ago). There are no reported paroxysmal visual auras. She had a complete hysterectomy at age 35, and had been on estrogen replacement Rx for many years (discontinued approx. 1 1/2 years ago). She does currently report paroxysmal hot flashes and night sweats. There is no reported clear-cut TIA/stroke history. She has known hypertension and hyperlipidemia (prior significant statin intolerance). She had been on Wegovy Rx for the past 1+ years, with significant weight loss (approx. 55 pounds). She recently discontinued Wegovy Rx (few weeks ago). Lastly, there is reported fibromyalgia history, with prior reported negative autoimmune lab workup. She is on Cymbalta Rx. There is also a family history of seizures/epilepsy (brother, grandmother), as well as dementia. Allergies Allergy/AdvReac Type Severity Reaction Status Date / Time kiwi Allergy Severe Anaphylaxis Unverified 11/30/24 13:45 morphine Allergy Intermediate felt like Verified 11/30/24 13:45 bugs crawling on skin, severe Sulfa (Sulfonamide AdvReac Intermediate Headache Verified 11/30/24 13:45 Antibiotics) Home Medications Medication Instructions Recorded Confirmed Type Medical Marijuana 1 dose PO DAILY 09/10/24 01/07/25 History duloxetine 60 mg capsule,delayed 60 mg PO QAM 09/10/24 01/07/25 History release ezetimibe 10 mg tablet 10 mg PO QAM 09/10/24 01/07/25 History omeprazole 20 mg capsule,delayed 20 mg PO QAM 11/30/24 01/07/25 History release losartan 100 mg tablet 100 mg PO DAILY 01/07/25 01/07/25 History metoprolol succinate 25 mg 25 mg PO DAILY 01/07/25 01/07/25 History tablet,extended release 24 hr trazodone 100 mg tablet 100 mg PO HS 01/07/25 01/07/25 History zonisamide 100 mg capsule 100 mg PO HS #30 caps 01/08/25 Rx Patient History Medical History Chronic sinusitis History of anesthesia reaction BP went really high, needed a nitro patch at one point for it HLD (hyperlipidemia) HTN (hypertension) BP 118/78 at 01/2024 cardio appt History of kidney stones GERD (gastroesophageal reflux disease) Fibromyalgia History of anesthesia reaction did not move bowels for 10 days after last bladder sx, was hospitalized at [facility] for 4 days due to this, July 2020 Surgical History History of esophagogastroduodenoscopy (EGD) History of colonoscopy History of cholecystectomy "might" have had removed History of appendectomy Hx of vascular surgery to legs vein stripping [place] teeth extracted Hx of lithotripsy History of partial hysterectomy Hx of section x2 Hx of hernia repair Hx of sinus surgery History of bladder surgery x2, first one was done through abdomen Family History Brother Heart problem Social History Smoking Status: Never smoker Second Hand Exposure: No; Do You Dip or Chew Tobacco: No; Hx Alcohol Use: Yes Alcohol type: wine Hx Substance Use: No Preferred Language: Greenlandic Communication Ability: Effective Visual Impairment: No Limitations Duct Layer Helper Required: No Beliefs That Will Affect Care: None Current Living Situation: Spouse Feels Safe at Home: Yes Assistive Devices: Glasses Review of Systems Review of Systems was otherwise negative aside from above-described positive/negative findings in HPI section. Physical Exam Pleasant woman in no acute distress. She was alert and oriented x5. She had good attention/concentration. There was no evident dysarthria. There was no evident expressive, conductive, or receptive aphasia. There was no evident neurological/john-spatial neglect. Short-term memory was reasonable regarding more recent events. Visual powers appeared full bilaterally. EOMs were intact, without any evident nystagmus. There was no evident Nilsa's syndrome. She had normal eye closure and lower facial strength. There was no evident lower facial droop. She had good bilateral UE/LE strength, with no evident downward limb drift with sustained elevation. There was no dystaxia with bilateral [id number] and heel-to bhat testing. She had good bilateral hand/finger Jong/dexterity. She had equal bilateral face/arm/leg sensation to touch. There was no evident UE rest, action, or postural tremor. There were no evident involuntary movements (no myoclonus or seizure activity). She has able to stand without assistance. She had steady casual walking and turning. Results & Data Vital Signs (Past 12 Hours) Vital Signs Temp Pulse Pulse Resp BP Pulse Ox O2 Del Method 01/08/25 07:45 36.5 C 85 17 128/80 95 Room Air 01/08/25 07:00 Room Air 01/08/25 02:42 36.4 C L 69 18 96/66 L 97 Room Air 01/07/25 22:36 36.6 C 85 18 104/74 94 Room Air 01/07/25 22:19 87 Laboratory Results Various recent/prior labs wee reviewed. Diagnostic Findings Various more recent diagnostic studies were reviewed. Current non-contrast CT(brain) and recent MRI(brain) were personally reviewed, and didn't reveal any evident significant abnormalities. Total Time Total Time Spent (In Minutes): 150
[2025-01-08 11:14] VITALS: BP 128/86; PULSE 71; RESP 20; TEMP 97.5; O2SAT 100
[2025-01-08] MEDS: GADOBUTROL 30ML VIAL IV ONE (12:32)
--- NOTE | 2025-01-08 12:41 | Magnetic Resonance Report ---
MRI OF THE BRAIN WITHOUT IV CONTRAST CLINICAL HISTORY: Strokelike symptoms. COMPARISON STUDY: CT of the brain dated 01/07/2025. MRI of the brain dated 11/30/2024. TECHNIQUE: MRI of the brain was performed utilizing various T1 and T2-weighted sequences in the axial , sagittal, and coronal planes. IV contrast was not administered for this examination. FINDINGS: Brain parenchyma: The brain parenchyma is normal in appearance. There is no hemorrhage or mass effect . There is no restricted diffusion to suggest acute ischemia. [place]-white matter differentiation is pr eserved. No extra-axial fluid collection is seen. The cerebellar tonsils are normal in configuration. Ventricles, sulci, and cisterns: Normal in configuration. Pituitary and sella: Partially empty sella is incidentally noted. Intracranial vasculature: Normal flow voids are maintained at the skull base. Orbits: The bony orbits are grossly intact. Orbital contents are normal in appearance. Sinuses and mastoids: There is evidence of previous paranasal sinus surgery. Moderate mucosal thicken ing is noted in the right sphenoid sinus. There is trace mucosal thickening in the maxillary antra. T he mastoid air cells are clear. Calvarium: Unremarkable. Cervical cord: Partially visualized cervical spinal cord is normal in morphology and signal intensity . IMPRESSION: No acute intracranial abnormality. ACT 112: Negative or not required by law. Electronically signed by: Obinna Rodriguez M.D. 01/08/2025 12:40 PM
--- NOTE | 2025-01-08 12:50 | Magnetic Resonance Report ---
MR ANGIOGRAM OF THE BRAIN CLINICAL HISTORY: Strokelike symptoms. COMPARISON STUDY: MRI of the brain performed concurrently on 01/08/2025. TECHNIQUE: 3-D gwja-yr-vvsreo MR angiography of the intracranial circulation is performed. 3-D tumble views are created and assessed. IV contrast was not administered for this examination. FINDINGS: The internal carotid arteries are widely patent bilaterally, as are the anterior and middle cerebral arteries. The vertebrobasilar system and posterior cerebral arteries are widely patent. The right vertebral artery is dominant. There is a right posterior communicating artery. There is no an eurysm, high-grade stenosis, or focal vessel cutoff seen throughout the intracranial circulation. The brain parenchyma is normal as visualized. Mucosal thickening is noted in the right sphenoid sinus. IMPRESSION: Unremarkable MR angiogram of the brain. ACT 112: Negative or not required by law. Electronically signed by: Obinna Rodriguez M.D. 01/08/2025 12:47 PM
--- NOTE | 2025-01-08 13:05 | Magnetic Resonance Report ---
MR ANGIOGRAM OF THE NECK COMBO CLINICAL HISTORY: Strokelike symptoms. COMPARISON STUDY: No priors. TECHNIQUE: Axial 3-D gtna-jd-pewvoj MR angiography of the neck is performed. Subsequently, following the IV administration of 10 cc of Gadavist. Coronal MR angiogram of the neck was performed to corrobo rate the findings. 3-D reformats are created and assessed. All measurements were calculated based on NASCET criteria. FINDINGS: Visualized portions of the thoracic aorta are normal in caliber. The aortic arch demonstrat es standard 3-vessel anatomy. The subclavian arteries are widely patent bilaterally. The right common carotid artery is widely patent, as are the right internal and external carotid arteries. The left c ommon carotid artery is widely patent, as are the left internal and external carotid arteries. There is tortuosity of the distal internal carotid arteries. The vertebral arteries are widely patent. The right vertebral artery is dominant. The visualized intracranial vessels at the skull base appear jang nt. IMPRESSION: Unremarkable MR angiogram of the neck. ACT 112: Negative or not required by law. Electronically signed by: Obinna Rodriguez M.D. 01/08/2025 1:04 PM
--- NOTE | 2025-01-08 13:27 | Discharge Summary ---
Discharge Summary Date of Service January 08, 2025 Principal Dx & Hospital Course #1 = Principal Diagnosis (1) Acute alteration in mental status: (2) Chest pain: (3) Uncontrolled hypertension: (4) GERD (gastroesophageal reflux disease): Plan 54 yo F who presents with episodic altered mental status and chest pain. Hospitalized last month with similar presentation with unremarkable work up. #AMS No obvious source of infection Urine tox screen negative Neurology consulted, discussed 01/08 --> recommending brain MRI, head/neck MRA, routine/sleep-deprived EEG study + outpt ambulatory 24-48hr EEG study. Start Zonisamide 100mg qHS. BP < 160/90. Follow up 1 month outpatient. Brain MRI negative Head/neck MRI unremarkable unable to obtain EEG on the weekend - defer to outpatient. #HTN, uncontrolled - resolved BP 128/86 on dc Continue Losartan and Metoprolol Succ Monitor @ home & follow up w/ PCP if abnormal #Chest pain -resolved Low index of suspicion for cardiac source Initial HS trop <2.3, repeat pending EKG NSR w/o acute changes D dimer negative Monitor on TELE, EKG PRN chest pain Continue Omeprazole on dc. #Depression - Continue Trazodone #Fibromyalgia - Continue duloxetine #HLD Continue Zetia, cannot tolerate statins Takes CoQ-10 at home OTC Discussed w/ Dr. Aj 01/08 Updated at discharge 01/08 - pt discharged home Admission HPI Per Admitting Provider Leilani is a 54 yo F with a pmhx of HTN, fibromyalgia, GERD, chronic sinusitis, HLD, and depression who presents to the ER accompanied by her and two daughters due to confusion/AMS and chest pain. Reportedly, the patient was not feeling well earlier, was confused, and dizzy and indigestion. She went and sat for a while at school and the family then decided to transport her to the ER for evaluation. Patient reports that she takes Losartan and Metoprolol for her BP and that it has been running high the last week. She has had headaches intermittently. One daughter was indicating that her confusion today is not her baseline. She was hospitalized last month and discharged on 12/02 with similar symptoms. Per the dc summary last admission pt was having "spells" of confusion. Her work up during that stay was unremarkable with normal CT head and MRI brain. She did not have a UTI during that admission. She does have a h/o urinary retention and has had to intermittently straight cath at times. She has had no urinary symptoms leading into today's presentation, she denies dysuria, hematuria. She denies abd pain, n/v/d, f/c. Her chest pain earlier was described as midsternal and felt like a pressure, but has now migrated to the base of her neck and feels more burning. Her initial w/u in the ER today is essentially unremarkable. Her CTH is without acute abnormalities. She is afebrile and her BP is stable at 132/89. Her chem profile is unremarkable. TSH WNL, d-dimer 210, and HS trop was <2.3. EKG nonacute. UA negative and her toxicology panel is pending but she denies utilizing any recreational drugs. She does have an rx for medical marijuana. She was medicated with famotidine and promethazine, her chest discomfort has improved. She is alert and oriented at present. Hospital medical team has been asked to evaluation for admission. Discharge Exam General: NAD, VS: BP 128/86; P71; R20; T36.4C Resp: normal respiratory effort Extremities: Moves all extremities, no edema Neuro: A&O x3 Skin: intact, no lesions noted Discharge Plan Discharge Items Patient Disposition: Home - Self-Care Reason For Visit: CONFUSION, UNCONTROLLED HTN Discharge Diagnosis: Altered Mental Status Condition on Discharge: Fair Activity: Resume your previous activity Non-emergency contact: Primary Care Provider and Neurologist Call non-emergency contact if: you have any medication questions and your symptoms worsen Follow-up/Referrals: Deion Rivera [Primary Care Provider] - Eric Aj MD [Physician] - Diet: Regular Addtl Attending Provider Instructions: Mrs. Riddle, Warren were recently hospitalized secondary to episodes of confusion. You were evaluated by our tele-neurology provider from [facility]. You had a brain MRI that revealed no concerning findings in your brain or in your arteries. You will continue your workup with the neurologist on an outpatient basis. Medications: Your medication list has been reviewed and reconciled upon discharge to ensure accuracy and continuity of care. An updated list of all your medications is included with your hospital discharge paperwork. Please review this list closely, and make note of any changes. Zonisamide 100mg was sent to your pharmacy. Please take this prior to bed. Take your medications as instructed; do not skip a dose of your medicines. Make sure all of your doctors know every medicine you are taking (including litd-qfh-tkibhrr medicines, vitamins, and supplements). Call your primary care provider before taking any new medicines (including over- the-counter medicines, vitamins, and supplements), because some of these may interact with your current medications, or may make your symptoms worse. Tell your primary care provider if you cannot afford your medications. Activity: You can do normal everyday activities as your body allows. Take rest breaks if you feel tired. Do not overexert. Stop activity if you have pain, shortness of breath or feel dizzy. Follow-up appointments: Make an appointment with your primary care physician within one week of discharge. A copy of this summary will be sent to them. Every time you see your primary care physician, or any other doctor, bring your medication list, and a list of questions. Please follow up with the neurologist in the outpatient setting. Their office phone number is above if you should have questions or concerns. CONTACT YOUR PRIMARY CARE PROVIDER if you experience any of the following: Shortness of breath or difficulty breathing Fevers or chills Feeling tired with normal activity or experiencing dizziness or fainting Difficulty following your treatment plan, or difficulty taking medications CALL 911 OR GO TO THE EMERGENCY DEPARTMENT if you experience any of the following: Severe abdominal pain or nausea/vomiting Severe chest pain, or chest pain that radiates (moves) to your jaw or arm Sudden, severe shortness of breath or difficulty breathing Thank you for allowing us to participate in your care. Pending Studies at Discharge: No Stand-Alone Forms: My [facility], Smoking Cessation Medications and DC Order Prescriptions: New zonisamide 100 mg Capsule 100 mg PO HS Qty: 30 0RF Continued ezetimibe 10 mg Tablet 10 mg PO QAM duloxetine 60 mg Capsule,Delayed Release(Dr/Ec) 60 mg PO QAM Medical Marijuana 1 dose PO DAILY omeprazole 20 mg Capsule,Delayed Release(Dr/Ec) 20 mg PO QAM trazodone 100 mg Tablet 100 mg PO HS losartan 100 mg Tablet 100 mg PO DAILY metoprolol succinate 25 mg tablet extended release 24 hr 25 mg PO DAILY Discharge Orders: Discharge Order (Routine); Ordered 01/08/25 Ordered By: Sarah Fraser/Other Patient Handouts: Dizziness Fainting Causes Admission Data Admit Date/Time: 01/07/25 15:47 Attending Provider: Norm Dunlap Admit Provider: Joon Padgett Primary Care Provider: Deion Rivera Other Providers: Eric Elizalde; Zahra Bernal; Eric Aj; Arti Lennon; Aston [place]; Brigitte Gregory; Mnida Aquino; Kehinde Berry; Missael Torre; Hui Ramirez; Hugo Benton; Robert Lam; Stefanie Giron; Joseph Fierro V; Ricky Villagomez I; Agata Song; Elsi Earl; Kandi Graf; Isabel Murphy; Joon Padgett Other Interventions: Discharge Summary Assessment (RN) Last Done: 01/08/25 13:44 Hospital Stay Data Consultations 01/07/25 14:37 ED Decision to Admit Stat 01/07/25 17:02 Consult Neurology Routine Diagnostic Imagining Performed 01/07/25 13:13 CT head/brain wo con Stat 01/08/25 11:05 MRI Angio Head [MR angio head wo con] Urgent 01/08/25 11:10 MRI Angio Neck [MR angio neck wo/w con] Urgent MRI Brain [MR brain wo con] Urgent Pending Results Patient Have Any Pending Studies at Discharge: No Discharge Instructions Given to Patient (Per Discharging Provider) [place] were recently hospitalized secondary to episodes of confusion. You were evaluated by our tele-neurology provider from [facility]. You had a brain MRI that revealed no concerning findings in your brain or in your arteries. You will continue your workup with the neurologist on an outpatient basis. Medications: Your medication list has been reviewed and reconciled upon discharge to ensure accuracy and continuity of care. An updated list of all your medications is included with your hospital discharge paperwork. Please review this list closely, and make note of any changes. Zonisamide 100mg was sent to your pharmacy. Please take this prior to bed. Take your medications as instructed; do not skip a dose of your medicines. Make sure all of your doctors know every medicine you are taking (including enpi-avp-knlvetf medicines, vitamins, and supplements). Call your primary care provider before taking any new medicines (including over- the-counter medicines, vitamins, and supplements), because some of these may interact with your current medications, or may make your symptoms worse. Tell your primary care provider if you cannot afford your medications. Activity: You can do normal everyday activities as your body allows. Take rest breaks if you feel tired. Do not overexert. Stop activity if you have pain, shortness of breath or feel dizzy. Follow-up appointments: Make an appointment with your primary care physician within one week of discharge. A copy of this summary will be sent to them. Every time you see your primary care physician, or any other doctor, bring your medication list, and a list of questions. Please follow up with the neurologist in the outpatient setting. Their office phone number is above if you should have questions or concerns. CONTACT YOUR PRIMARY CARE PROVIDER if you experience any of the following: Shortness of breath or difficulty breathing Fevers or chills Feeling tired with normal activity or experiencing dizziness or fainting Difficulty following your treatment plan, or difficulty taking medications CALL 911 OR GO TO THE EMERGENCY DEPARTMENT if you experience any of the following: Severe abdominal pain or nausea/vomiting Severe chest pain, or chest pain that radiates (moves) to your jaw or arm Sudden, severe shortness of breath or difficulty breathing Thank you for allowing us to participate in your care. Supervising Physician Co-Signing Physician Notes The patient was not seen by me. The chart was reviewed. Case discussed with FILI Ritter. Agree with assessment and plan Total Time Total Time Spent Total Time Spent (In Minutes): 65 Total Time Includes: Examination of the Patient, Discharge Planning, Medication Reconciliation and Communication With Other Providers Coding Level of Care Code 38667 INP/OBS DISCH >30 MIN Diagnoses Acute alteration in mental status R41.82 Chest pain R07.9 Uncontrolled hypertension I10 GERD (gastroesophageal reflux disease) K21.9
[2025-01-08] MEDS ORDERED: ZONISAMIDE 100 MG CAPSULE PO SCH (21:00)
[2025-01-09] MEDS ORDERED: ASPIRIN 81 MG ECTAB PO SCH (09:00)
--- NOTE | 2025-01-09 23:05 | Electrocardiogram Report ---
Test Reason : Blood Pressure : */* mmHG Vent. Rate : 81 BPM Atrial Rate : 81 BPM P-R Int : 116 ms QRS Dur : 84 ms QT Int : 372 ms P-R-T Axes : 30 6 45 degrees QTcB Int : 432 ms Normal sinus rhythm Normal ECG When compared with ECG of 30-Nov-2024 11:25, No significant change was found Confirmed by Cisco Wang ([id number]) on 01/09/2025 11:04:59 PM Referred By: Confirmed By: Cisco Wang
== END 2025-01-08 13:57 | disposition home or self-care (01) ==
LOC: 2S 12:54 → ED 12:54 → SUATTDRO 15:47 → 2S 16:46
DX: E66.9 Obesity, unspecified; R07.9 Chest pain, unspecified; R41.82 Altered mental status, unspecified; Z82.0 Family history of epilepsy and other diseases of the nervous system; Z88.5 Allergy status to narcotic agent; E78.5 Hyperlipidemia, unspecified; M79.7 Fibromyalgia; H91.93 Unspecified hearing loss, bilateral; Z87.442 Personal history of urinary calculi; F32.A Depression, unspecified; Z79.899 Other long term (current) drug therapy; Z88.2 Allergy status to sulfonamides; Z91.018 Allergy to other foods; Z68.37 Body mass index [BMI] 37.0-37.9, adult; K21.9 Gastro-esophageal reflux disease without esophagitis; I10 Essential (primary) hypertension